=== PATIENT | female | born 1980 | race Caucasian/White ===

== ENCOUNTER 2018-11-17 12:06 | Inpatient (IN) ==
[2018-11-17] MEDS ORDERED: Tdap (Boostrix) Vaccine 0.5 ML SYRINGE IM ONE (12:16)
[2018-11-17] MEDS ORDERED: 0.9 % Sodium Chloride 1,000 ML IVC ONE ×2 (12:16→15:42)
--- NOTE | 2018-11-17 12:22 | Emergency Department Note ---
Disposition Clinical Impression: IVDU (intravenous drug user) Abscess of skin or subcutaneous tissue Qualifiers: Site of cutaneous abscess: extremity Site of cutaneous abscess of extremity: foot Laterality: left Qualified Code(s): L02.612 - Cutaneous abscess of left foot Disposition: Still a Patient Referrals: NONE,PCP [Primary Care Provider] - Forms: ED Satisfaction Letter Time of Disposition: 18:00 Skin/Abscess/FB HPI Stated complaint: Deep ankle wound Time Seen by Provider: 11/17/18 12:14 Source: patient, EMS Mode of arrival: EMS Limitations: no limitations Nursing Notes Reviewed: Yes Vital Signs Reviewed: Yes HPI Narrative: Nontoxic-appearing 37-year-old female with a history of IV drug use (injects Suboxone) presents by EMS for evaluation of a deeply ulcerated abscesses to the left foot and ankle. She states that she last injected into this area approximately one month ago. A couple days after she last injected, she noticed the redness beginning to form. Then the wounds have progressed to significantly erythematous wounds are covered in a brownish colored eschar. Purulent drainage is noted to be present from both these regions. She denies any fever or chills but does complain of nausea and vomiting. Tetanus immunization status is not up-to-date. Also states that she has an abscess to the right antecubital region that has spontaneously opened and drained. This area is covered with an gauze dressing. She arrives with the wound on her left foot open to air. Pt Subjective Complaint: abscess/boil Onset (ago): month(s) Tetanus Up to Date: no Location: RUE, LLE Severity: severe Consistency: Worsening Associated symptoms: Reports: nausea, vomiting. Denies: fever, chills Treatments prior to arrival: none Home Medications Medication Instructions Recorded Confirmed No Known Home Drugs 07/06/15 07/06/15 Allergies Allergy/AdvReac Type Severity Reaction Status Date / Time No Known Allergies Allergy Verified 05/02/17 17:18 All systems ED: reviewed and negative except as stated. Review of Systems: As Per HPI Constitutional: Denies: fever, chills, weakness, weight change Eyes: Denies: eye pain, eye discharge, vision change ENT ED: Denies: ear pain, throat pain, dental pain, hearing loss, epistaxis, congestion, dysphagia Cardiovascular: Denies: chest pain, palpitations, dyspnea on exertion, edema, syncope Respiratory: Denies: cough, dyspnea, wheezes, hemoptysis, stridor Gastrointestinal: Reports: as per HPI, nausea, vomiting. Denies: abdominal pain, diarrhea, constipation, hematemesis, melena, hematochezia Genitourinary: Denies: dysuria, frequency, hematuria, discharge Musculoskeletal: Denies: back pain, neck pain, arthralgia, myalgia Integumentary: Reports: as per HPI, other (Left foot/ankle abscess). Denies: rash, abrasion, lesions Neurological: Denies: headache, weakness, numbness, paresthesias, confusion, abnormal gait, vertigo Psychiatric: Denies: anxiety, depression, suicidal thoughts, homicidal thoughts, auditory hallucinations, visual hallucinations Endocrine: Denies: fatigue Hematological/Lymphatic: Denies: easy bleeding, easy bruising Allergic/Immunologic: Denies: facial swelling, urticaria Past Medical History - Past Medical History Attestation: Yes The following information was validated with the patient. Source: patient, nursing notes reviewed Medical history: Reports: no medical history Psychiatric history: Reports: anxiety, depression MOLDER CLOSED MOLDS history: Reports: no MOLDER CLOSED MOLDS history - Social History Smoking Status: Current every day smoker Smokeless Tobacco Status: No Alcohol use: Reports: none Drug use: Reports: cocaine, IV Drug Use, other Physical Exam - General Limitations: no limitations General appearance: alert, in no apparent distress - Head Head exam: atraumatic, normocephalic, normal inspection - Eye Eye exam: Present: normal appearance, PERRL, EOMI. Absent: nystagmus - ENT ENT exam: mucous membranes moist - Neck Neck exam: Present: normal inspection, full ROM - Chest Chest inspection: Present: normal inspection, symmetric chest wall rise - Expanded Upper Extremity Exam Elbow exam: Present: other (Approximate 1 cm x 0.5 cm ulceration noted to the r ight antecubital region. Mild surround cellulitis. Scant purulent discharge noted.) Forearm/Wrist exam: Present: normal inspection, full ROM Hand exam: Present: normal inspection, full ROM Neuromotor exam: Normal: wrist extension, thumb opposition, fingers 2-5 abduction Neurosensory exam: Normal: radial nerve, ulnar nerve, 2-point discrimination Hand tendon exam: Normal: flexor digitorum profundus (location), extensor tendon (location) Vascular exam: Normal: capillary refill, radial pulse, ulnar pulse - Expanded Lower Extremity Exam Knee exam: Present: normal inspection, full ROM Lower leg exam: Present: normal inspection, full ROM Ankle exam: Present: tenderness, swelling, erythema, other 1 - Extensive cellulitis noted surrounding the ulceration that is partially covered with eschar. Purulent discharge/drainage noted. 2 - Extensive cellulitis noted surrounding an area of eschar that measures approximately 5 cm x 5 cm. Purulent drainage noted to be seeping from underneath the eschar.. Foot/toe exam: Present: tenderness, swelling, erythema, other Neurovascular/Tendon exam: Present: normal capillary refill. Absent: pulse deficit, tendon deficit, extremity cold to touch - Neurological Exam Neurological exam: Present: alert, oriented X3 - Psychiatric Psychiatric exam: Present: normal affect, normal mood - Skin Skin exam: Present: warm, dry, other (As described above) Course Course Narrative: The PICC team was consult due to limited vascular access. PICC line Established at 1500. 1615: I was notified by the patient's nurse that the patient's PICC line will not flush properly. Labs were able to be drawn when the line was initiated however it will not function as of currently, and as such, the patient has not been able to undergo her IV contrast CT of the left lower extremity. FREDA Delarosa from the PICC team has been notified. 1740: CT pending. The patient's wounds will require extensive debridement. We will await CT read and consult with podiatry. Admission versus transfer based off CT imaging and podiatry input. I have discussed this patient's case with Dr. Lozano. Dr. Lozano has had a taqx-qu-vaal evaluation with the patient and agrees with this plan. Vital Signs Temperature 99.3 F 11/17/18 12:13 Pulse Rate 101 11/17/18 12:13 Respiratory Rate 18 11/17/18 12:13 Blood Pressure 125/73 11/17/18 12:13 O2 Sat by Pulse Oximetry 98 11/17/18 12:13 Temperature 99.3 F 11/17/18 12:13 Pulse Rate 101 11/17/18 12:13 Respiratory Rate 18 11/17/18 12:13 Blood Pressure 125/73 11/17/18 12:13 O2 Sat by Pulse Oximetry 98 11/17/18 12:13 Oxygen Delivery Oxygen Delivery Room Air Skin/Abscess/Foreign Body - Medical Records Medical records reviewed: Yes I reviewed the patient's medical records. - Lab Data Lab results reviewed: Yes I reviewed the patient's lab results. Lab results narrative: Lab Results 11/17/18 11/17/18 11/17/18 Range/Units 14:45 14:45 14:45 WBC 17.8 H (4.3-11.1) K/mcL RBC 4.27 (3.82-4.97) M/mcL Hgb 11.4 L (11.5-15.4) g/dL Hct 35.1 L (35.3-44.9) % MCV 82.2 L (83.0-100.0) fL MCH 26.7 L (28.0-33.3) pg MCHC 32.5 (31.6-35.5) g/dL RDW 13.2 (11.5-14.5) % Plt Count 465 H (140-400) K/mcL MPV 9.2 L (9.4-12.4) fL Immature Gran % 0.4 (0-4) % Seg Neutrophils % 75.1 % Lymphocytes % 15.3 % Monocytes % 6.4 % Eosinophils % 2.5 % Basophils % 0.3 % Neutrophils # 13.4 H (1.6-8.9) K/mcL Lymphocytes # 2.7 (0.6-4.6) K/mcL Monocytes # 1.1 (0.0-1.3) K/mcL Eosinophils # 0.4 (0.0-0.6) K/mcL Basophils # 0.1 (0.0-0.2) K/mcL ESR >= 130 H (0-15) mm/hr Sodium 137 (136-145) mEq/L Potassium 3.0 L (3.5-5.1) mEq/L Chloride 103 (98-107) mEq/L Carbon Dioxide 21 L (23-29) mEq/L BUN 24 H (6-20) mg/dL Creatinine 0.89 (0.60-1.20) mg/dL Est GFR ( Amer) > 60 (> 60) Est GFR (Non-Af Amer) > 60 (> 60) BUN/Creatinine Ratio 27 H (6-26) Glucose 89 (70-105) mg/dL Calculated Osmolality 288 (280-300) Lactic Acid (0.5-2.2) mmol/L Calcium 9.4 (8.6-10.3) mg/dL C-Reactive Protein 129 H (Less than 10) mg/L Serum , Qual (Negative) 11/17/18 11/17/18 Range/Units 14:45 14:46 WBC (4.3-11.1) K/mcL RBC (3.82-4.97) M/mcL Hgb (11.5-15.4) g/dL Hct (35.3-44.9) % MCV (83.0-100.0) fL MCH (28.0-33.3) pg MCHC (31.6-35.5) g/dL RDW (11.5-14.5) % Plt Count (140-400) K/mcL MPV (9.4-12.4) fL Immature Gran % (0-4) % Seg Neutrophils % % Lymphocytes % % Monocytes % % Eosinophils % % Basophils % % Neutrophils # (1.6-8.9) K/mcL Lymphocytes # (0.6-4.6) K/mcL Monocytes # (0.0-1.3) K/mcL Eosinophils # (0.0-0.6) K/mcL Basophils # (0.0-0.2) K/mcL ESR (0-15) mm/hr Sodium (136-145) mEq/L Potassium (3.5-5.1) mEq/L Chloride (98-107) mEq/L Carbon Dioxide (23-29) mEq/L BUN (6-20) mg/dL Creatinine (0.60-1.20) mg/dL Est GFR ( Amer) (> 60) Est GFR (Non-Af Amer) (> 60) BUN/Creatinine Ratio (6-26) Glucose (70-105) mg/dL Calculated Osmolality (280-300) Lactic Acid 0.6 (0.5-2.2) mmol/L Calcium (8.6-10.3) mg/dL C-Reactive Protein (Less than 10) mg/L Serum , Qual Negative (Negative) Result diagrams: 11/17/18 14:45 11/17/18 14:45 Lab Results 11/17/18 11/17/18 11/17/18 Range/Units 14:45 14:45 14:45 WBC 17.8 H (4.3-11.1) K/mcL RBC 4.27 (3.82-4.97) M/mcL Hgb 11.4 L (11.5-15.4) g/dL Hct 35.1 L (35.3-44.9) % MCV 82.2 L (83.0-100.0) fL MCH 26.7 L (28.0-33.3) pg MCHC 32.5 (31.6-35.5) g/dL RDW 13.2 (11.5-14.5) % Plt Count 465 H (140-400) K/mcL MPV 9.2 L (9.4-12.4) fL Immature Gran % 0.4 (0-4) % Seg Neutrophils % 75.1 % Lymphocytes % 15.3 % Monocytes % 6.4 % Eosinophils % 2.5 % Basophils % 0.3 % Neutrophils # 13.4 H (1.6-8.9) K/mcL Lymphocytes # 2.7 (0.6-4.6) K/mcL Monocytes # 1.1 (0.0-1.3) K/mcL Eosinophils # 0.4 (0.0-0.6) K/mcL Basophils # 0.1 (0.0-0.2) K/mcL ESR >= 130 H (0-15) mm/hr Sodium 137 (136-145) mEq/L Potassium 3.0 L (3.5-5.1) mEq/L Chloride 103 (98-107) mEq/L Carbon Dioxide 21 L (23-29) mEq/L BUN 24 H (6-20) mg/dL Creatinine 0.89 (0.60-1.20) mg/dL Est GFR ( Amer) > 60 (> 60) Est GFR (Non-Af Amer) > 60 (> 60) BUN/Creatinine Ratio 27 H (6-26) Glucose 89 (70-105) mg/dL Calculated Osmolality 288 (280-300) Lactic Acid (0.5-2.2) mmol/L Calcium 9.4 (8.6-10.3) mg/dL C-Reactive Protein 129 H (Less than 10) mg/L Serum , Qual (Negative) 11/17/18 11/17/18 Range/Units 14:45 14:46 WBC (4.3-11.1) K/mcL RBC (3.82-4.97) M/mcL Hgb (11.5-15.4) g/dL Hct (35.3-44.9) % MCV (83.0-100.0) fL MCH (28.0-33.3) pg MCHC (31.6-35.5) g/dL RDW (11.5-14.5) % Plt Count (140-400) K/mcL MPV (9.4-12.4) fL Immature Gran % (0-4) % Seg Neutrophils % % Lymphocytes % % Monocytes % % Eosinophils % % Basophils % % Neutrophils # (1.6-8.9) K/mcL Lymphocytes # (0.6-4.6) K/mcL Monocytes # (0.0-1.3) K/mcL Eosinophils # (0.0-0.6) K/mcL Basophils # (0.0-0.2) K/mcL ESR (0-15) mm/hr Sodium (136-145) mEq/L Potassium (3.5-5.1) mEq/L Chloride (98-107) mEq/L Carbon Dioxide (23-29) mEq/L BUN (6-20) mg/dL Creatinine (0.60-1.20) mg/dL Est GFR ( Amer) (> 60) Est GFR (Non-Af Amer) (> 60) BUN/Creatinine Ratio (6-26) Glucose (70-105) mg/dL Calculated Osmolality (280-300) Lactic Acid 0.6 (0.5-2.2) mmol/L Calcium (8.6-10.3) mg/dL C-Reactive Protein (Less than 10) mg/L Serum , Qual Negative (Negative) - Radiology Data Radiology results reviewed: Yes I reviewed the patient's radiology results. S.B.AStella - S.B.A.REvelyn Situation: Demographics, MOA Background: Presenting Complaint, Relevant PMH, Meds, & Allergies Assessment: Vital Signs, Course and respsone to treatment, Exam Concerns, Patient/Family Expectation, Pertinant Lab Results, Outstanding Labs Recommendation: Barrier(s) to disposition, Recommendation based on pending studies, treatments, or consults S.B.A.R. Report Given to: PALOMA Page S.B.A.R. Repor Time: 18:00 (care transferred to Jakub Wilson CNP due to midlevel shift change. )
[2018-11-17] MEDS ORDERED: Isovue-370 500 ML BOTTLE IVP ONE (12:40)
--- NOTE | 2018-11-17 12:44 | Emergency Department Note ---
Disposition Clinical Impression: IVDU (intravenous drug user) Abscess of skin or subcutaneous tissue Qualifiers: Site of cutaneous abscess: extremity Site of cutaneous abscess of extremity: foot Laterality: left Qualified Code(s): L02.612 - Cutaneous abscess of left foot Disposition: Still a Patient General Adult HPI - General Chief complaint: ED Skin/Abscess/Foreign Body Stated complaint: Deep ankle wound Time Seen by Provider: 11/17/18 12:14 Source: patient, EMS Mode of arrival: EMS Limitations: no limitations Nursing Notes Reviewed: Yes Vital Signs Reviewed: Yes - History of Present Illness HPI Narrative: Attestation note: Patient was seen with the emergency medicine resident/nurse pr actitioner/physician ex assistant/program director/transitional resident/medical student: PALOMA ROBIN I have personally performed a face to face evaluation on this patient. I have reviewed and agree with history and physical examination patient management and disposition. Briefly the salient points of the case are as follows: 37-year-old female history of extensive IV drug use has been having increasing the spreading ulcerative process on the dorsum of her foot and her lateral malleolus for about a month to 6 weeks. No crepitance felt no signs of acute tissue necrosis but there is heat margins with serosanguineous discharge and pain. Did not films read by radiology as negative osteomyelitis or gas in tissues. Patient is getting a PICC line placed will be getting IV antibiotics thank and Dawna montiel labs patient's tetanus will be boosted patient's symptoms of pain will be treated. Patient will get a CT scan of the left ankle with contrast. We are primary concerned about osteomyelitis and work necrotizing fasciitis. Disposition pending. Providing 45 minutes of critical care service for this patient. Pain Scale: 10 - Related Data Home Medications Medication Instructions Recorded Confirmed No Known Home Drugs 07/06/15 07/06/15 Allergies Allergy/AdvReac Type Severity Reaction Status Date / Time No Known Allergies Allergy Verified 05/02/17 17:18 Constitutional: Denies: fever, chills, weakness, weight change Eyes: Denies: eye pain, eye discharge, vision change ENT ED: Denies: ear pain, throat pain, dental pain, hearing loss, epistaxis, congestion, dysphagia Cardiovascular: Denies: chest pain, palpitations, dyspnea on exertion, edema, syncope Respiratory: Denies: cough, dyspnea, wheezes, hemoptysis, stridor Gastrointestinal: Reports: as per HPI, nausea, vomiting. Denies: abdominal pain, diarrhea, constipation, hematemesis, melena, hematochezia Genitourinary: Denies: dysuria, frequency, hematuria, discharge Musculoskeletal: Denies: back pain, neck pain, arthralgia, myalgia Integumentary: Reports: as per HPI, other (Left foot/ankle abscess). Denies: rash, abrasion, lesions Neurological: Denies: headache, weakness, numbness, paresthesias, confusion, abnormal gait, vertigo Psychiatric: Denies: anxiety, depression, suicidal thoughts, homicidal thoughts, auditory hallucinations, visual hallucinations Endocrine: Denies: fatigue Hematological/Lymphatic: Denies: easy bleeding, easy bruising Allergic/Immunologic: Denies: facial swelling, urticaria Past Medical History - Past Medical History Medical history: Reports: no medical history Psychiatric history: Reports: anxiety, depression WATER RESOURCE SPECIALIST history: Reports: no WATER RESOURCE SPECIALIST history - Social History Smoking Status: Current every day smoker Smokeless Tobacco Status: No Alcohol use: Reports: none Drug use: Reports: cocaine, IV Drug Use, other Physical Exam - General Limitations: no limitations General appearance: alert, in no apparent distress Course Vital Signs Temperature 99.3 F 11/17/18 12:13 Pulse Rate 101 11/17/18 12:13 Respiratory Rate 18 11/17/18 12:13 Blood Pressure 125/73 11/17/18 12:13 O2 Sat by Pulse Oximetry 98 11/17/18 12:13 Temperature 99.3 F 11/17/18 12:13 Pulse Rate 101 11/17/18 12:13 Respiratory Rate 18 11/17/18 12:13 Blood Pressure 125/73 11/17/18 12:13 O2 Sat by Pulse Oximetry 98 11/17/18 12:13 Oxygen Delivery Oxygen Delivery Room Air
[2018-11-17 15:18] LABS: Basophils # 0.1 K/mcL (0.0-0.2); Basophils % 0.3 %; Eosinophils # 0.4 K/mcL (0.0-0.6); Eosinophils % 2.5 %; Hematocrit 35.1 % (35.3-44.9); Hemoglobin 11.4 g/dL (11.5-15.4); Immature Granulocytes % 0.4 % (0-4); Lymphocytes # 2.7 K/mcL (0.6-4.6); Lymphocytes % 15.3 %; Mean Corpuscular HGB Conc 32.5 g/dL (31.6-35.5); Mean Corpuscular Hemoglobin 26.7 pg (28.0-33.3); Mean Corpuscular Volume 82.2 fL (83.0-100.0); Mean Platelet Volume 9.2 fL (9.4-12.4); Monocytes # 1.1 K/mcL (0.0-1.3); Monocytes % 6.4 %; Neutrophils # 13.4 K/mcL (1.6-8.9); Platelet Count 465 K/mcL (140-400); Red Blood Count 4.27 M/mcL (3.82-4.97); Red Cell Distribution Width 13.2 % (11.5-14.5); Segmented Neutrophils % 75.1 %
[2018-11-17] MEDS ORDERED: *HR* HYDROmorphone (PF) 1 MG/ML SYRINGE IVP ONE (15:24)
[2018-11-17] MEDS: Piperacillin/Tazobactam 3.375 GM in 0.9 % Sodium Chloride Mini Bag 100 ML IVPB ONE ×2 (15:31→17:24)
[2018-11-17 15:37] LABS: BUN/Creatinine Ratio 27 (6-26); Blood Urea Nitrogen 24 mg/dL (6-20); C-Reactive Protein 129 mg/L (Less than 10); Calcium 9.4 mg/dL (8.6-10.3); Carbon Dioxide 21 mEq/L (23-29); Chloride 103 mEq/L (98-107); Glucose 89 mg/dL (70-105); Osmolality,Calculated 288 (280-300); Sodium 137 mEq/L (136-145); eGFR For Non-African Americans > 60 (> 60)
[2018-11-17] MEDS ORDERED: Potassium Effervescent 25 MEQ TABLET.EFF PO ONE (15:42)
--- NOTE | 2018-11-17 18:19 | Emergency Department Note ---
Disposition Clinical Impression: IVDU (intravenous drug user) Abscess of skin or subcutaneous tissue Qualifiers: Site of cutaneous abscess: extremity Site of cutaneous abscess of extremity: foot Laterality: left Qualified Code(s): L02.612 - Cutaneous abscess of left foot Disposition: Admitted As Inpatient Condition: Good Referrals: NONE,PCP [Primary Care Provider] - Forms: ED Satisfaction Letter General Adult HPI - General Chief complaint: ED Skin/Abscess/Foreign Body Stated complaint: Deep ankle wound Time Seen by Provider: 11/17/18 12:14 Source: patient, EMS Mode of arrival: private vehicle Limitations: no limitations Nursing Notes Reviewed: Yes Vital Signs Reviewed: Yes - History of Present Illness Pain Scale: 10 - Related Data Home Medications Medication Instructions Recorded Confirmed No Known Home Drugs 07/06/15 07/06/15 Allergies Allergy/AdvReac Type Severity Reaction Status Date / Time No Known Allergies Allergy Verified 11/17/18 19:02 Constitutional: Denies: fever, chills, weakness, weight change Eyes: Denies: eye pain, eye discharge, vision change ENT ED: Denies: ear pain, throat pain, dental pain, hearing loss, epistaxis, congestion, dysphagia Cardiovascular: Denies: chest pain, palpitations, dyspnea on exertion, edema, syncope Respiratory: Denies: cough, dyspnea, wheezes, hemoptysis, stridor Gastrointestinal: Reports: as per HPI, nausea, vomiting. Denies: abdominal pain, diarrhea, constipation, hematemesis, melena, hematochezia Genitourinary: Denies: dysuria, frequency, hematuria, discharge Musculoskeletal: Denies: back pain, neck pain, arthralgia, myalgia Integumentary: Reports: as per HPI, other (Left foot/ankle abscess). Denies: rash, abrasion, lesions Neurological: Denies: headache, weakness, numbness, paresthesias, confusion, abnormal gait, vertigo Psychiatric: Denies: anxiety, depression, suicidal thoughts, homicidal thoughts, auditory hallucinations, visual hallucinations Endocrine: Denies: fatigue Hematological/Lymphatic: Denies: easy bleeding, easy bruising Allergic/Immunologic: Denies: facial swelling, urticaria Past Medical History - Past Medical History Medical history: Reports: no medical history Psychiatric history: Reports: anxiety, depression RESTAURANT DISTRICT MANAGER history: Reports: no RESTAURANT DISTRICT MANAGER history - Social History Smoking Status: Current every day smoker Smokeless Tobacco Status: No Alcohol use: Reports: none Drug use: Reports: cocaine, IV Drug Use, other Physical Exam - General Limitations: no limitations General appearance: alert, in no apparent distress Course Course Narrative: Case was assumed from previous [facility], please see their documentation for treatments and interventions completed prior to my arrival. Briefly this is a 37-year-old female who is an IV drug user injecting Suboxone. She has multiple abscesses worse noted to the left medial aspect of the ankle and the dorsal surface of the foot. These are draining copious amounts of purulent drainage, erythemic, deeply ulcerated and edematous. Patient states these have been here for months. At home patient has denied fevers, here she was slightly febrile temperature 99.3. Labs completed revealed an elevated white blood cell count 17.8 with a shift, ESR greater than 1:30, CRP 129, metabolic panel significant for a potassium of 3.0 that had been replaced prior to my arrival. X-ray without evidence of gas or also, CT of the lower extremity is pending. Vancomycin had been initiated, wound cultures and blood cultures obtained. When seen patient who does appear uncomfortable, she states her foot is signifi cantly painful. Area is edematous, copious amounts of purulent drainage, dried crusting eschar drainage where patient was not cleaning the wound. It is erythemic. She does have capillary refill to her toes, she has full range of motion to her foot and ankle. CT reveals no gas or osteomyelitis over there is a 14 x 10.6 x 6.3 cm abscess. I did call and speak with caustic operator Dr. Branham who states we are able to manage this patient in house, admitted to hospitalist services and they will consult on her. I did update the patient's plan of care who is agreeable. We will initiate pain management and page for the hospitalists at this time. - Reevaluation(s) Reevaluation #1: Spoke with hospitalist Dr. Mena, agreeable to accept patient on an inpati ent status with consult to podiatry. Patient continues to be agreeable to plan of care. We will monitor the patient's as she was transitioned to the hospitalist team. Time: 20:05 Vital Signs Temperature 99.3 F 11/17/18 12:13 Pulse Rate 101 11/17/18 12:13 Respiratory Rate 18 11/17/18 12:13 Blood Pressure 125/73 11/17/18 12:13 O2 Sat by Pulse Oximetry 98 11/17/18 12:13 Temperature 99.3 F 11/17/18 12:13 Pulse Rate 80 11/17/18 19:38 Respiratory Rate 16 11/17/18 19:38 Blood Pressure 105/89 11/17/18 19:38 O2 Sat by Pulse Oximetry 99 11/17/18 19:38 Oxygen Delivery Oxygen Delivery Room Air Medical Decision Making - Lab Data Result diagrams: 11/17/18 14:45 11/17/18 14:45 Lab Results 11/17/18 11/17/18 11/17/18 Range/Units 14:45 14:45 14:45 WBC 17.8 H (4.3-11.1) K/mcL RBC 4.27 (3.82-4.97) M/mcL Hgb 11.4 L (11.5-15.4) g/dL Hct 35.1 L (35.3-44.9) % MCV 82.2 L (83.0-100.0) fL MCH 26.7 L (28.0-33.3) pg MCHC 32.5 (31.6-35.5) g/dL RDW 13.2 (11.5-14.5) % Plt Count 465 H (140-400) K/mcL MPV 9.2 L (9.4-12.4) fL Immature Gran % 0.4 (0-4) % Seg Neutrophils % 75.1 % Lymphocytes % 15.3 % Monocytes % 6.4 % Eosinophils % 2.5 % Basophils % 0.3 % Neutrophils # 13.4 H (1.6-8.9) K/mcL Lymphocytes # 2.7 (0.6-4.6) K/mcL Monocytes # 1.1 (0.0-1.3) K/mcL Eosinophils # 0.4 (0.0-0.6) K/mcL Basophils # 0.1 (0.0-0.2) K/mcL ESR >= 130 H (0-15) mm/hr Sodium 137 (136-145) mEq/L Potassium 3.0 L (3.5-5.1) mEq/L Chloride 103 (98-107) mEq/L Carbon Dioxide 21 L (23-29) mEq/L BUN 24 H (6-20) mg/dL Creatinine 0.89 (0.60-1.20) mg/dL Est GFR ( Amer) > 60 (> 60) Est GFR (Non-Af Amer) > 60 (> 60) BUN/Creatinine Ratio 27 H (6-26) Glucose 89 (70-105) mg/dL Calculated Osmolality 288 (280-300) Lactic Acid (0.5-2.2) mmol/L Calcium 9.4 (8.6-10.3) mg/dL C-Reactive Protein 129 H (Less than 10) mg/L Serum , Qual (Negative) 11/17/18 11/17/18 Range/Units 14:45 14:46 WBC (4.3-11.1) K/mcL RBC (3.82-4.97) M/mcL Hgb (11.5-15.4) g/dL Hct (35.3-44.9) % MCV (83.0-100.0) fL MCH (28.0-33.3) pg MCHC (31.6-35.5) g/dL RDW (11.5-14.5) % Plt Count (140-400) K/mcL MPV (9.4-12.4) fL Immature Gran % (0-4) % Seg Neutrophils % % Lymphocytes % % Monocytes % % Eosinophils % % Basophils % % Neutrophils # (1.6-8.9) K/mcL Lymphocytes # (0.6-4.6) K/mcL Monocytes # (0.0-1.3) K/mcL Eosinophils # (0.0-0.6) K/mcL Basophils # (0.0-0.2) K/mcL ESR (0-15) mm/hr Sodium (136-145) mEq/L Potassium (3.5-5.1) mEq/L Chloride (98-107) mEq/L Carbon Dioxide (23-29) mEq/L BUN (6-20) mg/dL Creatinine (0.60-1.20) mg/dL Est GFR ( Amer) (> 60) Est GFR (Non-Af Amer) (> 60) BUN/Creatinine Ratio (6-26) Glucose (70-105) mg/dL Calculated Osmolality (280-300) Lactic Acid 0.6 (0.5-2.2) mmol/L Calcium (8.6-10.3) mg/dL C-Reactive Protein (Less than 10) mg/L Serum , Qual Negative (Negative)
[2018-11-17] MEDS ORDERED: *HR* Morphine Immed Rel 30 MG TABLET PO ONE (18:20)
[2018-11-17] MEDS ORDERED: Ondansetron 4 MG/2 ML VIAL IVP ONE (18:24)
--- NOTE | 2018-11-17 21:16 | Anesthesia Evaluation PreOp ---
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 History: Other (Anxiety/Depression) Other Medical History: Denies Any Significant HX Anesthesia History: No Prior Anesthetic Complications, Past Anesthesia (Multiple surgeries for incision and drainage) : No Test: Negative (11/17/18) Alcohol Use: none Drug use: cocaine, IV Drug Use, other (On suboxone) Medications and Allergies RX: No Known Home Drugs 07/06/15 [History] Allergy/AdvReac Type Severity Reaction Status Date / Time No Known Allergies Allergy Verified 11/17/18 19:02 - Meds/Allergy Pre-op Review Medications Reviewed: Yes Allergies Reviewed: Yes Beta Blockers on Current Med List: No Anesthesia Results - Labs 11/17/18 14:45 11/17/18 14:45 Anesthesia Exam Vital Signs/O2 Sat, Most Current Temp Pulse Resp BP Pulse Ox 98.1 F 68 15 109/71 98 11/17/18 21:50 11/17/18 21:50 11/17/18 21:50 11/17/18 21:50 11/17/18 21:50 NPO (# of Hours): > 8 hrs Pain Scale: 0 Pain Scale Used: Numeric (1 - 10) - HEENT Pupil (Motor): Pupils equal, EOMI Mallampati: I Teeth: Normal Oral Opening: Greater than 3 - 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
--- NOTE | 2018-11-17 21:49 | Podiatry Consult Note ---
Date of Encounter: 11/17/18 Time of Encounter: 08:30 Assessment and Plan (1) Abscess of tendon sheath, left ankle and foot Current visit: Yes Status: Acute 37-year-old female with history of IV junk abuse with worsening ulcerations and infections of the left foot and ankle multiple areas showing CT scan with significant abscess. Concern for necrotizing infection. I had a thorough review with the patient regarding her condition, my findings, and recommendations for treatment. We discussed the infection present in the left foot and ankle. We discussed that her left lower extremity may not be salvageable and she could require an amputation of the leg. Discussed she is going to require multiple procedures and trips to the operating room to try to salvage her limb if that is possible. No guarantees were made as to the outcome. She is being brought emergently to the operating room for incision and drainage of the left foot and ankle abscess and removal of nonviable tissue as the patient has systemic signs of infection in addition to her local says infection present in the left foot ankle/leg and multiple areas. Nature the procedure, risks versus benefits potential complications consequences of surgery and her condition discussed at length including but not limited to infection bleeding swelling numbness tingling nerve damage kidney damage liver damage loss of leg heart attack blood clot pulmonary embolism and etc. It was clearly explained to her that she is at risk for losing her leg and this will be a staged procedure and she will have wounds to heal. I did encourage smoking cessation. Patient is now NPO. All of her questions have been answered and the informed consent was signed. History of Present Illness HPI: Ms. Rowell is a 37 year old female with a history of IV drug abuse who reports she has had wounds on her foot for a month and they have been gradually getting w orse. She says she does not know how the wounds started on her foot. She says she has had other infections in the past and points to areas on her arms and her neck and says that they also required surgery which she had done in [place]. Patient denies when asked that she has been using IV drugs. She says she is on Suboxone. She says she started to experience fever and has felt nauseous and ou t of it so she came to the emergency room for evaluation. She says her left foot and ankle have been hurting more and she asked me not to touch it. She says she has seen a lot of purulent drainage coming out of the wounds. Consult by ER for concern of abscess and necrotizing infection of the left foot and ankle. Past Med Surg Social Fam HX - Past Medical History Medical history: no medical history Psychiatric history: anxiety, depression - Past Surgical History Surgical History: other (Multiple surgeries for incision and drainage) Additional surgical history: abcess removed right neck - Social History Smoking Status: Current every day smoker Smokeless Tobacco Status: No Alcohol use: none Drug use: cocaine, IV Drug Use, other Medications and Allergies No Known Home Drugs 07/06/15 [History] Allergy/AdvReac Type Severity Reaction Status Date / Time No Known Allergies Allergy Verified 11/17/18 19:02 All Systems Reviewed: The remainder of the systems were reviewed and are negative - Constitutional Constitutional: no fever(s) - Cardiovascular Cardiovascular: no chest pain, no dyspnea - Respiratory Respiratory: no cough - Musculoskeletal Musculoskeletal: numbness (Left foot) Physical Exam - Constitutional Vitals: Temp Pulse Resp BP Pulse Ox 99.3 F 76 18 110/58 97 11/17/18 12:13 11/17/18 21:06 11/17/18 21:42 11/17/18 21:42 11/17/18 21:06 General appearance: average body habitus - Head Head exam: Present: atraumatic - Eye Eye exam: Present: EOMI - Respiratory Additional comments: Nonlabored respirations - Cardiovascular Cardiovascular exam: Present: +S1, +S2. Absent: JVD - GI/Abdominal GI/Abdominal exam: Present: soft. Absent: tenderness - Ankle & Foot Exam: Well-developed and nourished female in no acute distress Capillary refill time intact to digits of the left foot. There is fluctuance present on the dorsum of the foot and the patient will not allow me to further examine her. There is evidence of purulent drainage and while I was examining her I was able to express some purulent drainage which appeared to be tracking proximally in the anterior ankle. She would not allow further exam due to pain and she was guarding. The foot was warm to touch. There was moderate edema of the midfoot. Erythema of the midfoot was also present. Was evidence of scab and necrotic tissue medial ankle and foot as well as dorsum of foot and ankle extending laterally. Sensation intact to touch. CT scan shows large abscess of the left foot and the ankle. Results - Labs Result Diagrams: 11/17/18 14:45 11/17/18 14:45 Labs: Abnormal lab results WBC 17.8 K/mcL (4.3-11.1) H 11/17/18 14:45 Hgb 11.4 g/dL (11.5-15.4) L 11/17/18 14:45 Hct 35.1 % (35.3-44.9) L 11/17/18 14:45 MCV 82.2 fL (83.0-100.0) L 11/17/18 14:45 MCH 26.7 pg (28.0-33.3) L 11/17/18 14:45 Plt Count 465 K/mcL (140-400) H 11/17/18 14:45 MPV 9.2 fL (9.4-12.4) L 11/17/18 14:45 Neutrophils # 13.4 K/mcL (1.6-8.9) H 11/17/18 14:45 ESR >= 130 mm/hr (0-15) H 11/17/18 14:45 Potassium 3.0 mEq/L (3.5-5.1) L 11/17/18 14:45 Carbon Dioxide 21 mEq/L (23-29) L 11/17/18 14:45 BUN 24 mg/dL (6-20) H 11/17/18 14:45 BUN/Creatinine Ratio 27 (6-26) H 11/17/18 14:45 C-Reactive Protein 129 mg/L (Less than 10) H 11/17/18 14:45 H & H 11/17/18 Range/Units 14:45 Hgb 11.4 L (11.5-15.4) g/dL Hct 35.1 L (35.3-44.9) % All other labs normal. Consult Discharge Plan - Plan Referrals: NONE,PCP [Primary Care Provider] -
[2018-11-17] MEDS ORDERED: Albuterol 2.5 MG/3 ML NEBULIZER IH ONE ×2 (22:21→22:40)
[2018-11-17] MEDS ORDERED: Dexamethasone 4 MG/ML VIAL IVP ONE (22:21)
[2018-11-17] MEDS ORDERED: *HR* Labetalol 20 MG/4 ML SYRINGE IVP PRN (22:21)
[2018-11-17] MEDS ORDERED: *HR* OxyCODONE Immed Rel 5 MG TABLET PO PRN (22:21)
[2018-11-17] MEDS ORDERED: Ringers Solution, Lactated 1,000 ML ONE (22:31)
[2018-11-17] MEDS ORDERED: Ringers Solution, Lactated 1,000 ML IVC SCH (22:45)
[2018-11-17] MEDS ORDERED: Vancomycin 1,000 MG VIAL ONE (23:06)
[2018-11-17] MEDS ORDERED: Bupivacaine-MPF 0.25% 10 ML VIAL ONE (23:07)
[2018-11-17] MEDS ORDERED: *HR* FentaNYL (PF) 100 MCG/2 ML VIAL ONE (23:16)
[2018-11-17] MEDS ORDERED: *HR* Propofol 200 MG/20 ML VIAL IVP ONE (23:17)
[2018-11-17] MEDS ORDERED: *HR* Succinylcholine 200 MG/10 ML VIAL IVP ONE (23:19)
[2018-11-17] MEDS ORDERED: Ondansetron 4 MG/2 ML VIAL ONE (23:19)
[2018-11-17] MEDS ORDERED: Lidocaine -MPF 2% 2 ML VIAL ONE (23:19)
[2018-11-17] MEDS ORDERED: Dexamethasone 4 MG/ML VIAL ONE (23:19)
[2018-11-17] MEDS ORDERED: Bupivacaine/EPI 1:200k 0.25%PF 30 ML VIAL ONE (23:23)
[2018-11-17] MEDS ORDERED: *HR* Rocuronium Bromide 50 MG/5 ML VIAL ONE (23:23)
[2018-11-18] MEDS: *HR* HYDROmorphone (PF) 1 MG/ML SYRINGE IVP PRN ×2 (00:46→00:54)
--- NOTE | 2018-11-18 00:47 | Operative Note ---
Date of procedure: 11/18/18 Pre-op diagnosis: left foot/ankle abscess Post-op diagnosis: same Procedure: incision and drainage left foot extensive multiple areas incision and drainage left ankle/leg Implants: none Complications: none Anesthesia: LORRIE Surgeon: Arpit Branham Was there an visitor services information assistant present: No Estimated blood loss (cc): 40 Tourniquet Time (Minutes): 18 Specimen: left foot/ankle abscess culture swabs and tissue-aerob, anaero, afb, fungal Condition: stable Disposition: PACU Procedure in Detail: 37-year-old female with a history of IV drug abuse admitted with sepsis and worsening left foot/ankle ulceration dorsal foot and anterior ankle as well as medial foot/ankle. The ulcerations contain purulen drainage and dorsally meausre 8cmx4.5x0.4cm and medially [id number]. CT scan of her left lower extremity showed significant extensive abscess. The patient had the nature of the above procedure, risks versus benefits potential complications and consequences of her condition and surgery discussed at length. It was made clear to the patient that she could , lose her leg or part of her foot due to the infection, lose functionality, developed a drop foot or weakness and require more surgery due to his infection and condition. No guarantees were made that her limb would be salvageable and it was explained to the patient that she will require multiple surgeries of her limb if it is able to be salvaged. Did discuss and informed patient that more likely than she will ultimately require an amputation of the leg due to her infection. She says he wants to try to save it. All of her questions have been answered and the informed consent was signed. Patient was taken from the ER into the operating room placed on the operating room table in the supine position. A thigh tourniquet was applied and inflated to 250 mmHg. 0.25% marcaine with epi was injected into the patient's left lower extremity. The following procedure then began. Left foot complex multifocal incision and drainage. Attention was directed to the dorsal laspect of the patient's left foot where the wound with purulent drainage was located. A #15 blade was used to make an incision distally on the foot over the extensor tendons. Purulent drainage was tracking distally in the subcutaneou tissue and was extensive. All areas were probed and explored. There was significant devitalized tissue present and the misonex debridement wand was utilized to debride the soft tissue. The extensory and TA tendon were identified in the wound but not noted to have purulent drainage tracking along them. Culture swabs were used to obtain culture of the purulent drainage and tissue was sent to microbiology. Copious amounts of purulent drainage was expressed from the forefoot. The lateral foot was also probed and explored and purulent drainage was noted to be tracking over the dorsolateral foot over the level of the cuboid and midtarsal joints. The medial hindfoot wound extending onto the ankle was debrided with misonex debridement wand. Purulent drainage was noted to be tracking proximally in the subctuneous tissue. no purulent expressed distally medialy in the foot. The infection was extensive and in the deep tissue as well as subcutaneous tissue. The site was irrigated with a 3L bag of normal sterile saline which contained 3g of vancomycin. Upon reinspection no further purulence could be expressed from the distal forefoot. Attention was then directed proximally and medially. Left ankle extensive incision and drainage. With attention directed proximally more purulent drainage was able to be expressed along the anterior ankle so the incision was lengthened across the ankle. Purulent drainage was also noted at the medial ankle and the incision was made more proximal expressing purulent drainage. Purulence was not noted to be along the tibialis posterior tendon or tracking along the anterior ankle tendons. There was devitalized nonviable tissue in the anterior aspect of the ankle as well as the medial ankle which was excised. The bridge between the 2 wounds had purulent drainage tracking between them and the devitalized tissue underneath necessitated excision and then the 2 wounds upon excision of the soft tissue connected. The approximate measurements were 16.2 cm x 5.5 cm x 0.5 cm. The sites were irrigated with 3 L of normal sterile saline which contained 3 g of vancomycin. Upon reinspection no further purulent drainage could be expressed from any site aThe tourniquet was deflated after 18 minutes and Bovie was used to cauterize any bleeders. Hemoblast applied in the wound. The wound was covered with adaptic. Retention sutures were placed. Postoperative bandaging included 4 x 4 gauze ABDs Kerlix and Ba wrap. The patient had intact capillary refill time to the left foot digits. Foot was warm to touch. There was adequate hemostasis at the conclusion of the procedure. Patient escorted to the PACU. She will be admitted to the floor where she will continue IV antibiotics.
[2018-11-18] MEDS: *HR* Promethazine 25 MG/ML VIAL IVP PRN ×3 (01:01→05:42)
--- NOTE | 2018-11-18 01:21 | Anesthesia Evaluation Post Op ---
Date of Encounter: 11/18/18 Time of Encounter: 01:20 - Vital Signs Vital Signs: Vital Signs/O2 Sat, Most Current Temp Pulse Resp BP Pulse Ox 97.8 F 98 12 125/68 96 11/18/18 01:11 11/18/18 01:11 11/18/18 01:11 11/18/18 01:11 11/18/18 01:11 - Lungs Lungs: Clear Ascult./Percussion - Cardiovascular Regular Rate - Mental Status Mental Status: Alert & Oriented, Answers Appropriately - Pain Pain Scale: 3 Pain Scale used: Numeric (1 - 10) - Nausea Vomiting Nausea Vomiting: Not Present - Hydration Hydration: Tolerates oral liquids, Has not voided - Discharge PostOp Status: Transfer Patient to floor
[2018-11-18] MEDS ORDERED: Naloxone 0.4 MG/ML INJ IVP PRN (02:55)
[2018-11-18] MEDS: 0.9 % Sodium Chloride w KCl 20 MEQ/1,000 ML MLS IVC SCH ×2 (03:30→15:10)
[2018-11-18 03:51] LABS: Basophils % 0.3 %; Eosinophils # 0.2 K/mcL (0.0-0.6); Eosinophils % 1.7 %; Hematocrit 28.8 % (35.3-44.9); Immature Granulocytes % 0.4 % (0-4); Lymphocytes # 2.2 K/mcL (0.6-4.6); Lymphocytes % 19.6 %; Mean Corpuscular HGB Conc 31.6 g/dL (31.6-35.5); Mean Corpuscular Hemoglobin 26.5 pg (28.0-33.3); Mean Corpuscular Volume 83.7 fL (83.0-100.0); Monocytes # 0.7 K/mcL (0.0-1.3); Monocytes % 6.3 %; Platelet Count 360 K/mcL (140-400); Red Blood Count 3.44 M/mcL (3.82-4.97); Red Cell Distribution Width 13.4 % (11.5-14.5); Segmented Neutrophils % 71.7 %
[2018-11-18 03:53] LABS: Hemoglobin 9.1 g/dL (11.5-15.4)
[2018-11-18 04:13] LABS: Blood Urea Nitrogen 15 mg/dL (6-20); Carbon Dioxide 22 mEq/L (23-29); Chloride 110 mEq/L (98-107); Potassium 3.2 mEq/L (3.5-5.1); Sodium 139 mEq/L (136-145)
[2018-11-18 04:14] LABS: Alanine Aminotransferase 9 Units/L (7-52); Albumin 2.9 g/dL (3.5-5.7); Albumin/Globulin Ratio 0.8 (1.1-2.2); Alkaline Phosphatase 92 Units/L (34-104); Aspartate Amino Transferase 11 Units/L (13-39); BUN/Creatinine Ratio 21 (6-26); Bilirubin,Total 0.3 mg/dL (0.3-1.0); Calcium 8.7 mg/dL (8.6-10.3); Globulin 3.6 g/dL (2.4-3.5); Glucose 82 mg/dL (70-105); Osmolality,Calculated 288 (280-300); Total Protein 6.5 g/dL (6.4-8.9); eGFR For Non-African Americans > 60 (> 60)
--- NOTE | 2018-11-18 04:32 | Internal Med History&Physical ---
Date of Encounter: 11/18/18 Time of Encounter: 01:30 Internal Medicine - H&P: HPI Chief complaint: foot infection/pain Admitted From: Emergency Dept Plans for Post Hospital Care: Home History of present illness: Ms. Rowell is a 37 year old female who presents to the ER tonight complaining of severe, excruciating pain in her left foot. She was found to have a significant ulceration with necrosis secondary to chronic injection of Suboxone into her soft tissues. Podiatry was consulted and patient was taken to the OR this evening by Dr. Branham for debridement and staged surgical procedures. She was admitted to hospitalist service with consultation to podiatry. Patient was taken to surgery shortly after I received a phone call from the ER. I therefore did not see her until after surgery and recovering in PACU. Patient states she has had multiple abscesses throughout her skin and soft tissues over the years. She is a chronic abuser of Suboxone, which she buys on the street. She will usually crush it up and inject it into any vein she could find. She has had prior abscesses in her neck and her left hand requiring significant surgical debridement and intervention. She has multiple soft tissue scabs and ulcerations throughout her torso and extremities at the present time. Her left foot was the most excruciatingly painful ulcer/abscess she has thus far. She admits to having had some fevers and chills but no night sweats. She denies any cough, shortness of breath, or chest pain. Despite her significant IV drug abuse and extensive soft tissue abscesses and infections in the past, she denies any history of endocarditis. She has required long-term IV antibiotics with a PICC line in a correction in the past. She will likely require the same treatment this time around as well. Past Med Surg Social Fam HX - Past Medical History Attestation: Yes The following information was validated with the patient. Source: patient, obtained from family Medical history: other (IVDA) Additional medical history: IV drug use Psychiatric history: anxiety, depression - Past Surgical History Surgical History: other (soft tissue neck and hand surgery for abscesses) Additional surgical history: abcess removed right neck and left hand - Social History Smoking Status: Current every day smoker Packs per day: 1 Smokeless Tobacco Status: No Alcohol use: none Drug use: cocaine, IV Drug Use, other (suboxone -- not prescribed) Current living situation: Home Activity Level: Independent ambulation Recent Out of Country Travel Within the Last 8 Weeks: No - Family History Mother History Unknown: Yes Father History Unknown: Yes Internal Medicine - H&P: Meds No Known Home Drugs 07/06/15 [History] Allergy/AdvReac Type Severity Reaction Status Date / Time No Known Allergies Allergy Verified 11/17/18 19:02 - Constitutional Constitutional: chills, fever(s), no night sweats - EENT Eyes: no blurry vision, no change in vision Ears: no ear pain, no tinnitus Nose, mouth and throat: no sore throat - Cardiovascular Cardiovascular ROS IM: no chest pain, no dyspnea, no dyspnea on exertion - Respiratory Respiratory: no cough, no hemoptysis, no chest congestion, no excessive phlegm production, no change in phlegm color, no pain with cough - Gastrointestinal Gastrointestinal: no abdominal pain, no diarrhea, no hematemesis, no hematochezia, no melena, no nausea, no vomiting - Genitourinary Genitourinary: no dysuria, no flank pain, no hematuria - Musculoskeletal Musculoskeletal ROS IM: arthralgias, deformity (left foot ulceration), joint swelling, no back pain - Integumentary Integumentary IM: new lesions (scabs), skin ulcer, no rash, no jaundice - Neurological Neurological ROS: no dizziness, no focal weakness, no weakness - Psychiatric Psychiatric: no anxiety, no depression - Endocrine Endocrine IM: no polydipsia, no polyuria - Allergic/Immunologic Allergic/Immunologic: no GI upset with certain foods - Constitutional Vitals: Temp Pulse Resp BP Pulse Ox 98.2 F 68 14 99/63 98 11/18/18 03:28 11/18/18 03:28 11/18/18 03:28 11/18/18 03:28 11/18/18 03:28 General appearance: Present: cooperative, mild distress, A&O X 3, answers questions appropriately Exam: see below - Head Head exam: Present: normal inspection - Eye Eye exam: Present: EOMI, PERRL. Absent: scleral icterus Pupils: Present: normal accommodation - ENT ENT exam: Present: mucous membranes dry, normal exam, normal oropharynx - Neck Neck exam general surgery: Present: full ROM, supple, trachea midline. Absent: lymphadenopathy, tenderness, nuchal rigidity, thyromegaly - Respiratory Respiratory exam: Present: CTAB. Absent: chest wall tenderness, rales, respiratory distress, rhonchi, wheezes - Cardiovascular Cardiovascular exam: Present: RRR, +S1, +S2. Absent: clicks, diastolic murmur, rubs, systolic murmur - GI/Abdominal GI/Abdominal exam: Present: normal bowel sounds, soft. Absent: guarding, hepatomegaly, mass, rebound, splenomegaly, tenderness - Extremities Exam Extremities exam: Present: full ROM, tenderness (left foot -- wrapped and hilario ssed post-op), warm, radial pulses palpable and symmetrical. Absent: calf tenderness, pedal edema - Back Exam Back exam: Present: normal inspection. Absent: CVA tenderness (L), CVA tenderness (R) - Neurological Exam Neurological exam: Present: alert, CN II-XII intact, oriented X3, no focal deficits, strengths equal and symetr throughout - Psychiatric Psychiatric exam: Present: flat affect - Skin Skin exam: Present: dry, warm Additional comments: scattered scabbed ulcers/sot tissue abscesses throughout trunk, extremities Internal Med - H&P Results - Labs CBC & Chem 7: 11/18/18 03:40 11/18/18 03:40 Labs: Short CBC 11/17/18 11/18/18 Range/Units 14:45 03:40 WBC 17.8 H 11.2 H (4.3-11.1) K/mcL Hgb 11.4 L 9.1 L D (11.5-15.4) g/dL Hct 35.1 L 28.8 L (35.3-44.9) % Plt Count 465 H 360 (140-400) K/mcL Neutrophils # 13.4 H 8.0 (1.6-8.9) K/mcL BMP 11/17/18 11/18/18 14:45 03:40 Sodium 137 139 Potassium 3.0 L 3.2 L Chloride 103 110 H Carbon Dioxide 21 L 22 L BUN 24 H 15 Creatinine 0.89 0.72 Glucose 89 82 Calcium 9.4 8.7 Liver Function 11/18/18 Range/Units 03:40 Total Bilirubin 0.3 (0.3-1.0) mg/dL AST 11 L (13-39) Units/L ALT 9 (7-52) Units/L Alkaline Phosphatase 92 (34-104) Units/L Albumin 2.9 L (3.5-5.7) g/dL - Impressions ITS Impressions Ankle X-Ray 11/17/18 12:15 IMPRESSION: Extensive soft tissue irregularity and ulceration. No radiographic evidence of osteomyelitis. D/ / 11/17/2018 12:48:15 Mc Wiggins MD / roberta Interpreting Provider: Mc Wiggins MD Lower Extremity CT 11/17/18 12:40 IMPRESSION: 1. Large deep soft tissue ulcerations over the medial and dorsal aspects of the ankle. Large area of subcutaneous edema versus abscess in the soft tissues dorsal to the ankle and midfoot measuring approximately 14 x 10.6 x 6.3 cm. 2. No acute osseous abnormality. D/ / Saulo Alvarado MD / Saulo Alvarado MD Interpreting Provider: Saulo Alvarado MD - Diagnostic Studies Other Images Status: image reviewed by me (LLE CT -- ulceration noted) - Assessment and Plan (1) Abscess of tendon sheath, left ankle and foot Current Visit: Yes Status: Acute Assessment and plan: 1. S/P surgery per Dr. Branham. 2. Podiatry consulted and co-managing patient. 3. Wound and blood cultures obtained. 4. Will treat with IV Vancomycin and Zosyn. 5. Surgical/wound care per Dr. Branham. 6. Patient at risk for endocarditis with h/o IVDA -- will order ECHO. (2) IVDU (intravenous drug user) Current Visit: Yes Status: Acute Assessment and plan: 1. ECHO to rule out valvular vegetations. 2. Follow blood cultures and continue IV antibiotics as above. 3. Consult protective services social worker as she will likely need long-term IV antibiotics in ECF given her history of IVDA. (3) DVT prophylaxis Current Visit: Yes Status: Acute Assessment and plan: 1. Heparin SQ.
[2018-11-18] MEDS: *HR* OxyCODONE/APAP 10/325 TABLET PO PRN ×5 (04:43→22:49)
[2018-11-18] MEDS: Acetaminophen 325 MG TABLET PO PRN ×2 (05:41→15:14)
[2018-11-18] MEDS: *HR* Heparin 5,000 UNIT/ML VIAL SQ SCH ×2 (05:52→18:37)
[2018-11-18] MEDS: Piperacillin/Tazobactam 3.375 GM in 0.9 % Sodium Chloride Mini Bag 100 ML IVPB SCH ×2 (08:36→16:26)
--- NOTE | 2018-11-18 09:51 | Podiatry Progress Note ---
Date of Encounter: 11/18/18 Time of Encounter: 09:25 - Assessment and Plan (1) Abscess of tendon sheath, left ankle and foot Current Visit: Yes Status: Acute 37-year-old female with history of IV drug abuse with worsening ulcerations and infections of the left foot and ankle multiple areas showing CT scan with significant abscess. Concern for necrotizing infection. s/p incision and drainage of extensive abscesses left foot and ankle Discussed surgical procedure with patient and that she could still lose her leg due to the infection present. Discussed that if her limb is even salvageable it is going to require multiple procedures like we had discussed preoperatively. No guarantees were made that she would the able to keep the leg or infection not get in her bloodstream and ultimately caused her demise. Continue antibiotics. Get infectious disease consult on Tuesday when they return. Follow-up wound cultures. Bandage change by nurse later today. Possibly use wound VAC at a later time. Subjective Interval history: s/p I&D of left foot and ankle abscesses. Says her left foot and ankle are in pain. She is sitting up in bed. Says she had breakfast. Denies filling nauseous or vomiting this morning. Denies chest pain or shortness of breath. She does admit to me today that she was using IV drugs and says she missed the veins and multiple areas on her body which is how this problem started. She says she learned her lesson. Objective - Vital Signs Vital Signs: Vital Signs Temp Pulse Resp BP Pulse Ox 11/18/18 04:41 98.5 F 82 14 104/67 97 11/18/18 03:28 98.2 F 68 14 99/63 98 11/18/18 02:41 98.1 F 74 14 100/63 98 11/18/18 02:10 97.8 F 79 14 120/77 95 11/18/18 01:33 98.1 F 75 12 109/74 95 11/18/18 01:11 97.8 F 98 12 125/68 96 11/18/18 01:01 115 20 130/84 100 11/18/18 00:51 114 20 141/83 96 11/18/18 00:41 98.2 F 130 24 129/91 96 11/17/18 21:50 98.1 F 68 15 109/71 98 11/17/18 21:42 18 110/58 11/17/18 21:06 76 104/58 97 11/17/18 19:38 80 16 105/89 99 11/17/18 18:49 81 113/77 11/17/18 17:30 116/66 11/17/18 12:13 99.3 F 101 18 125/73 98 Intake and Output 11/17/18 11/18/18 11/18/18 23:59 07:59 15:59 Intake Total 2350 / 2350 638 / 638 Output Total 540 / 540 Balance 2350 / 2350 -540 / -540 638 / 638 Intake: IV Fluids 2350 / 2350 638 / 638 0.9 % Sodium Chloride 1,000 ML 2000 / 2000 @ 999 mls/hr IVC .Q1H1M ONE Rx# :[id number] KCl 20 mEq in 0.9% Sodium 388 / 388 Chloride 20 meq In 1,000 ml @ 100 mls/hr IVC .Q10H DAGOBERTO Rx#: [id number] Zosyn 3.375 GM In 0.9 % Sodium 100 / 100 Chloride (Mini-Bag +) 100 ML @ 25 mls/hr IVPB ONCE ONE Rx#: [id number] Vancocin 1,000 MG In 0.9 % 250 / 250 Sodium Chloride 250 ML @ 167 mls/hr IVPB Q12H DAGOBERTO Rx#: [id number] Vancocin 1,250 MG In 0.9 % 250 / 250 Sodium Chloride 250 ML @ 167 mls/hr IVPB ONCE ONE Rx#: [id number] Output: Urine 500 / 500 Estimated Blood Loss 40 / 40 Other: Weight 71.8 kg - Exam Exam: Well-developed female with poor dentition Capillary refill time intact to digits of the left foot. Left foot is warm to touch. Bandage is clean dry and intact. There is no strikethrough. - Lab Result Diagrams: 11/18/18 03:40 11/18/18 03:40 Labs: Abnormal lab results WBC 11.2 K/mcL (4.3-11.1) H 11/18/18 03:40 RBC 3.44 M/mcL (3.82-4.97) L 11/18/18 03:40 Hgb 9.1 g/dL (11.5-15.4) L D 11/18/18 03:40 Hct 28.8 % (35.3-44.9) L 11/18/18 03:40 MCH 26.5 pg (28.0-33.3) L 11/18/18 03:40 MPV 9.0 fL (9.4-12.4) L 11/18/18 03:40 ESR >= 130 mm/hr (0-15) H 11/17/18 14:45 Potassium 3.2 mEq/L (3.5-5.1) L 11/18/18 03:40 Chloride 110 mEq/L (98-107) H 11/18/18 03:40 Carbon Dioxide 22 mEq/L (23-29) L 11/18/18 03:40 AST 11 Units/L (13-39) L 11/18/18 03:40 C-Reactive Protein 129 mg/L (Less than 10) H 11/17/18 14:45 Albumin 2.9 g/dL (3.5-5.7) L 11/18/18 03:40 Globulin 3.6 g/dL (2.4-3.5) H 11/18/18 03:40 Albumin/Globulin Ratio 0.8 (1.1-2.2) L 11/18/18 03:40 Microbiology, Last 48 Hours 11/17/18 17:58 Wound Culture - Preliminary Left Ankle Culture is incubating. 11/17/18 14:45 Blood Culture - Preliminary Peripheral Venipuncture Culture is incubating and being continuously monitored for growth. Final report to follow. Consult Discharge Plan - Plan Referrals: NONE,PCP [Primary Care Provider] -
--- NOTE | 2018-11-18 12:04 | Event Note ---
Date of Encounter: 11/18/18 Time of Encounter: 12:02 Patient is a 37y/o female admitted for abscess of tendon sheath of left ankle and foot Pt is seen and examined with family present at bedside pt is s/p incision and drainage of abscesses of left foot and ankle LE dressing intact Pt reports pain is adequately controlled labs and vitals reviewed noted to have hypokalemia, K supplemented will continue wound care as per Podiatry continue IV Vanc and Zosyn f/u blood and wound cultures ID evaluation requested. Care plan discussed with patient/RN/family
[2018-11-18] MEDS ORDERED: 0.9 % Sodium Chloride 250 ML ONE (18:35)
[2018-11-19] MEDS: Piperacillin/Tazobactam 3.375 GM in 0.9 % Sodium Chloride Mini Bag 100 ML IVPB SCH ×3 (00:01→15:09)
[2018-11-19] MEDS: *HR* OxyCODONE/APAP 10/325 TABLET PO PRN ×4 (04:39→21:43)
[2018-11-19 05:16] LABS: Basophils % 0.2 %; Eosinophils # 0.3 K/mcL (0.0-0.6); Eosinophils % 2.5 %; Hematocrit 29.9 % (35.3-44.9); Hemoglobin 9.7 g/dL (11.5-15.4); Immature Granulocytes % 0.5 % (0-4); Lymphocytes # 2.3 K/mcL (0.6-4.6); Lymphocytes % 18.7 %; Mean Corpuscular HGB Conc 32.4 g/dL (31.6-35.5); Mean Corpuscular Hemoglobin 26.9 pg (28.0-33.3); Mean Corpuscular Volume 83.1 fL (83.0-100.0); Mean Platelet Volume 9.4 fL (9.4-12.4); Monocytes # 0.8 K/mcL (0.0-1.3); Monocytes % 6.5 %; Neutrophils # 8.6 K/mcL (1.6-8.9); Platelet Count 351 K/mcL (140-400); Red Cell Distribution Width 13.5 % (11.5-14.5); Segmented Neutrophils % 71.6 %
[2018-11-19 05:28] LABS: BUN/Creatinine Ratio 15 (6-26); Blood Urea Nitrogen 10 mg/dL (6-20); Calcium 8.9 mg/dL (8.6-10.3); Carbon Dioxide 19 mEq/L (23-29); Chloride 111 mEq/L (98-107); Glucose 83 mg/dL (70-105); Magnesium 1.6 mg/dL (1.6-2.6); Osmolality,Calculated 286 (280-300); Phosphorous 2.9 mg/dL (2.7-4.5); Potassium 3.9 mEq/L (3.5-5.1); Sodium 139 mEq/L (136-145); eGFR For Non-African Americans > 60 (> 60)
[2018-11-19] MEDS: *HR* Heparin 5,000 UNIT/ML VIAL SQ SCH ×2 (05:50→18:00)
--- NOTE | 2018-11-19 09:59 | Electrocardiograph Report ---
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
--- NOTE | 2018-11-19 12:03 | Internal Med Progress Note ---
Hospitalist Progress Note - Encounter Date of Encounter: 11/19/18 Time of Encounter: 12:01 - Subjective Interval History: Patient seen and examined at bedside. Resting in bed and states pain is adequately controlled with current pain medications. Denies any headache, chest pain, sob, abd pain, n/v, fever, or chills at this time. No overnight events reported Ten point ROS is negative except as listed above - Exam Vitals: Temp Pulse Resp BP Pulse Ox 98.1 F 70 16 95/65 97 11/19/18 11:39 11/19/18 11:39 11/19/18 11:39 11/19/18 11:39 11/19/18 11:39 Exam: General: No acute distress, AAO x 3 HEENT: EOMI, PERRLA, NC/AT, no scleral icterus Respiratory: Clear to auscultate bilaterally, no wheezing, no rales Cardiovascular: Regular, Rate, Rhythm, No murmurs GI: Soft, Non tender, non distended, normal bowel sounds Ext: distal LLE dressing intact, diffuse skin excoriations on distal lower extremities bilaterally, no tenderness, positive pulses Neuro: AAO x 3, no focal deficits Rest of the clinical exam is non contributory - Assessment and Plan (1) IVDU (intravenous drug user) Current Visit: Yes Status: Acute Assessment and Plan: Continue broad spectrum IV abx ID evaluation has been requested 2D echo report reviewed, no vegetations reported, will closely monitor, if pt is noted to have positive blood cultures, will consider PATT continue wound care as per podiatry (2) Abscess of tendon sheath, left ankle and foot Current Visit: Yes Status: Acute Assessment and Plan: Podiatry on board and evaluation appreciated s/p I& D on 11/17/18 continue broad spectrum IV abx wound care management as per podiatry f/u wound and blood cultures pain control as needed (3) DVT prophylaxis Current Visit: Yes Status: Acute Assessment and Plan: Heparin SQ - Time Spent with Patient Total time spent is greater than 50% in coordination of care (as documented) at patient's floor/unit and/or counseling patient: 25 - 35 minutes Plan of Care Discussed with: patient (patient/RN) Internal Medicine: Result - Labs CBC & Chem 7: 11/19/18 04:58 11/19/18 04:58 Labs: Short CBC 11/17/18 11/19/18 Range/Units 14:45 04:58 WBC 17.8 H 12.1 H (4.3-11.1) K/mcL Hgb 11.4 L 9.7 L (11.5-15.4) g/dL Hct 35.1 L 29.9 L (35.3-44.9) % Plt Count 465 H 351 (140-400) K/mcL Neutrophils # 13.4 H 8.6 (1.6-8.9) K/mcL BMP 11/17/18 11/19/18 14:45 04:58 Sodium 137 139 Potassium 3.0 L 3.9 Chloride 103 111 H Carbon Dioxide 21 L 19 L BUN 24 H 10 Creatinine 0.89 0.68 Glucose 89 83 Calcium 9.4 8.9 - Impressions Impressions Echocardiogram 11/18/18 02:55 Impressions: LVEF 65%. Normal LV chamber size, wall thickness and function. Normal left ventricular diastolic function. Normal right ventricular structure and function. No evidence of pulmonary hypertension. No significant valvular dysfunction. No obvious vegetations visualized. Recommend repeat study or consider PATT as clinically indicated. Left Ventricular Wall Motion: Rest Echo Findings All wall segments showed normal motion. Findings: Study Quality * Technically sub-optimal due to clinical status. ECG Findings * Normal sinus rhythm. Left Ventricle * LVEF 65%. * Normal LV chamber size, wall thickness and function. * Normal left ventricular diastolic function. Right Ventricle * Normal right ventricular structure and function. Left Atrium * Normal left atrial size. Right Atrium * Normal right atrial size. Aortic Valve * Grossly trileaflet aortic valve. Normal appearing function. * No aortic regurgitation. * No aortic stenosis. Mitral Valve * Normal mitral valve structure and function. * No mitral regurgitation. * No mitral stenosis. Tricuspid Valve * Grossly normal tricuspid valve structure and function. * Trace tricuspid regurgitation. * No evidence of pulmonary hypertension. Pulmonic Valve * Grossly normal structure and function. * No pulmonic regurgitation. Aorta * Normally sized aortic root. Pericardium * The pericardium appears normal. IVC * Normal IVC dimensions and inspiratory collapse. Pulmonary Artery * Normal visualized portions of the main pulmonary artery. Consult Discharge Plan - Plan Referrals: NONE,PCP [Primary Care Provider] -
[2018-11-19] MEDS: Ketorolac 15 MG/ML VIAL IVP PRN ×2 (12:33→18:29)
[2018-11-19] MEDS ORDERED: Sennosides/Docusate Sodium TABLET PO SCH (21:00)
[2018-11-20] MEDS: Piperacillin/Tazobactam 3.375 GM in 0.9 % Sodium Chloride Mini Bag 100 ML IVPB SCH ×2 (00:30→08:01)
[2018-11-20] MEDS: *HR* OxyCODONE/APAP 10/325 TABLET PO PRN ×5 (04:00→19:54)
[2018-11-20] MEDS: *HR* Heparin 5,000 UNIT/ML VIAL SQ SCH ×2 (05:13→17:52)
[2018-11-20 05:29] LABS: Basophils % 0.3 %; Eosinophils # 0.4 K/mcL (0.0-0.6); Eosinophils % 3.9 %; Hematocrit 32.2 % (35.3-44.9); Immature Granulocytes % 0.7 % (0-4); Immature Platelets 1.4 % (1.1-6.1); Lymphocytes # 2.7 K/mcL (0.6-4.6); Lymphocytes % 30.1 %; Mean Corpuscular HGB Conc 31.1 g/dL (31.6-35.5); Mean Corpuscular Hemoglobin 26.2 pg (28.0-33.3); Mean Corpuscular Volume 84.3 fL (83.0-100.0); Mean Platelet Volume 9.4 fL (9.4-12.4); Monocytes # 0.6 K/mcL (0.0-1.3); Monocytes % 7.2 %; Platelet Count 333 K/mcL (140-400); Red Blood Count 3.82 M/mcL (3.82-4.97); Red Cell Distribution Width 13.6 % (11.5-14.5); Segmented Neutrophils % 57.8 %
[2018-11-20 05:31] LABS: BUN/Creatinine Ratio 19 (6-26); Blood Urea Nitrogen 11 mg/dL (6-20); Carbon Dioxide 20 mEq/L (23-29); Chloride 112 mEq/L (98-107); Glucose 86 mg/dL (70-105); Magnesium 1.7 mg/dL (1.6-2.6); Osmolality,Calculated 289 (280-300); Phosphorous 3.8 mg/dL (2.7-4.5); Potassium 3.9 mEq/L (3.5-5.1); Sodium 140 mEq/L (136-145); eGFR For Non-African Americans > 60 (> 60)
[2018-11-20 05:47] LABS: Neutrophils # 5.1 K/mcL (1.6-8.9); Platelet Estimate Normal (Normal)
[2018-11-20] MEDS ORDERED: Aminoglycoside Consult 1 EACH MC ONE (07:36)
--- NOTE | 2018-11-20 08:52 | Infectious Disease Consult ---
Infectious Disease-Consult - Encounter Date/Time Date of Encounter: 11/20/18 Time of Encounter: 09:44 - Data of Consult Patient: yusuf to practice Reason for consult: Left foot/ankle abscess Consult date: 11/20/18 Requesting Physician: Kavita Stroud MD Primary Care Provider: PCP NONE - HPI HPI: Ms. goldberg is a 37-year-old female with past medical history of anxiety, depression, and IV drug use. The patient was admitted to the hospital 11/17/18 for IV drug use and left foot and ankle abscess. We are consulted for further workup and treatment recommendations for left foot and ankle abscess. Briefly, the patient is a 37-year-old female with a past medical history as stated above. The patient presented to the emergency department with a complaint of white one-month history of a left foot and ankle wound that had been progressing to the point where she was unable to ambulate. Upon arrival, she had a low-grade temp and was tachycardic. Laboratory studies revealed leukocytosis. Renal function was normal. No LFTs or lactic acid was checked. ESR was greater than 130 and CRP was 129. She had a left ankle x-ray that showed extensive soft tissue irregularity and ulceration, but no osteomyelitis. She also had a lower extremity CT that showed a large deep soft tissue ulceration of the medial and dorsal aspect of the ankle as well as an abscess in the soft tissues of the dorsal ankle and midfoot measuring approximately 14 x 10.6 x 6.3 cm. There was no osseous abnormality noted. Podiatry was consult and took the patient to the operating room and performed an I&D of the left foot and I&D of the left ankle/leg. Intraoperative cultures are positive for gram- positive cocci, presumptively a strep species. Swab culture of the wound obtained preop is positive for Enterobacter cloacae. A transthoracic echocardiogram that showed an EF of 65% and no valvular vegetations. Her leukocytosis has improved. She has remained afebrile. Currently, she is on Vanco and Zosyn. We have been asked to evaluate and make further recommendations. During my exam today, the patient states that she injected in the area of the infection about a month ago. She states she started having chills and overall feeling poorly about a week prior to admission. She states she developed an ulcer about 2 days after injecting and it progressively got worse. She denies any headache or neck pain. Denies chest pain, shortness of breath, or cough. Reports some nausea with vomiting and poor appetite prior to admission. Denies abdominal pain or urinary complaints. Denies oral thrush. Reports she has multiple Lesions to several areas of her body that she is used for injection sites. Today, she states that her left lower extremity is still very painful and describes it as a pressure. Denies any numbness or tingling. The patient lives at home with her significant other. She does not work outside the home. She smokes about a pack cigarettes per day. Injects non-prescribed Suboxone as stated above. Denies alcohol use. States she has been told in the past that she has hepatitis C. Denies other chronic infectious diseases. Denies any recent travel outside the [facility]. Denies any pet or animal exposures. - ROS Review of Systems: All systems reviewed and no additional remarkable complaints except as stated. - Results CBC & Chem 7: 11/23/18 03:05 11/23/18 03:05 - Line Documentation Line Documentation: PICC Line (Left upper extremity with transparent dressing clean, dry, and intact.) - Exam Vitals: Temp Pulse Resp BP Pulse Ox 98.3 F 72 16 107/71 96 11/20/18 08:43 11/20/18 08:43 11/20/18 08:43 11/20/18 08:43 11/20/18 08:43 Exam: Head: Atraumatic, normal inspection, normocephalic. Eye: EOMI, PERRLA, no scleral icterus noted. ENT: Mucous membranes moist. No odontogenic infection noted. Neck: Normal inspection, no meningismus. Respiratory: Clear to auscultation. No rales, respiratory distress, rhonchi, or wheezes noted. Cardiovascular: Regular rate and rhythm, S1 and S2 audible. No murmurs, rubs, or gallops. GI: Soft, nondistended, normal bowel sounds. Extremities: Left lower extremity dressing clean, dry, and intact. Positive motor and sensation to the distal extremity. Multiple scabbed lesions in various stages of healing noted to the bilateral lower extremities. No erythema or fluctuance noted surrounding the site. Back: Normal inspection. No vertebral tenderness noted. Neurological: Alert, oriented 3, no focal deficits. Psychiatric: normal affect, normal mood. Skin: Dry, intact, warm. Normal color. No rashes. cefTRIAXone [Rocephin] 2,000 mg IVPB DAILY #42 vial 11/22/18 [Rx] Allergy/AdvReac Type Severity Reaction Status Date / Time No Known Allergies Allergy Verified 11/17/18 19:02 - Assessment and Plan (1) Sepsis Current Visit: Yes Status: Acute She had 2 sepsis criteria on admission. Likely secondary to left foot abscess and cellulitis. Improved. Leukocytosis and tachycardia have resolved. She has remained afebrile. Blood cultures drawn 11/17/18 are no growth to date 2 sets. Qualifiers: Sepsis type: sepsis due to unspecified organism Qualified Code(s): A41.9 - Sepsis, unspecified organism SNOMED Code(s): 71415357 (2) Abscess of tendon sheath, left ankle and foot Current Visit: Yes Status: Acute Causative organism: Enterobacter cloacae and Strep species. Etiology: IV drug use injection site. X-ray of the left ankle showed extensive soft tissue irregularity and ulceration, but no osteomyelitis. CT of the left lower extremity showed a large abscess. Preop ESR greater than 130, CRP 129. Podiatry consult. Status post I&D of multiple areas of the left foot, and I&D of the left ankle/leg by Dr. Stack. Operative note reviewed. Intraoperative cultures are positive for gram-positive cocci, presumptively a strep species. Culture of the Wound Is Positive for Enterobacter cloacae. Currently on Vanco and Zosyn. SNOMED Code(s): 968943345 (3) Cellulitis of left foot Current Visit: Yes Status: Acute Location: Left foot. Etiology: Likely secondary to IV drug use injection site infection. CT of the lower extremity showed findings consistent with cellulitis. Currently on Vanco and Zosyn. SNOMED Code(s): 130693891 (4) IVDU (intravenous drug user) Current Visit: Yes Status: Acute Reports injecting Suboxone IV that she gets off the street. Last use about 4 weeks ago. Check hepatitis and HIV serologies. SNOMED Code(s): 612893636 - Recommendations Recommendations: Await blood cultures to finalize. Await intraoperative cultures to finalize. Check HIV, hepatitis B, and hepatitis C serologies. Wound care and activity restrictions per the podiatry team. Discontinue vanc and zosyn. Start Rocephin 2 grams IV daily. Start flagyl 500mg PO TID. Duration treatment depends on the clinical picture, likely 4-6 weeks given the extent of the infection. Will discuss further with the podiatry team. Monitor renal function for drug toxicity and dose adjust antibiotics. consulting services project manager to assist with discharge planning. Avoid insertion of term IV access until final discharge plans are arranged. Past Med Surg Social Fam HX - Past Medical History Attestation: Yes The following information was validated with the patient. Source: patient, old records reviewed, nursing notes reviewed Medical history: other (IVDA) Additional medical history: IV drug use Psychiatric history: anxiety, depression - Past Surgical History Surgical History: other (soft tissue neck and hand surgery for abscesses) Additional surgical history: abcess removed right neck and left hand - Social History Smoking Status: Current every day smoker Packs per day: 1 Smokeless Tobacco Status: No Alcohol use: none Drug use: cocaine, IV Drug Use, other (suboxone -- not prescribed) Occupational status: unemployed Current living situation: Home - Independent Activity Level: Independent ambulation Recent Out of Country Travel Within the Last 8 Weeks: No Exposure or Possible Exposure to Illness During Travel: No - Family History Father History Unknown: Yes Mother History Unknown: Yes Consult Discharge Plan - Plan Referrals: Amanda Hughes CNP [Advanced Practice Nurse] - 12/07/18 1:45 pm NONE,PCP [Primary Care Provider] - Prescriptions: cefTRIAXone [Rocephin] 2,000 mg IVPB DAILY #42 vial - Attending Attestation I have personally performed a face to face evaluation on this patient. I have reviewed and agree with the care plan. History and Exam by me shows: Assessment and Plan: 1. Sepsis 2. Abscess of tendon sheath left ankle, foot with E cloacae and strep sp s/p I&D 3. IVDU Recommendations: Await blood cultures to finalize. Await intraoperative cultures to finalize. Check HIV, hepatitis B, and hepatitis C serologies. Wound care and activity restrictions per the podiatry team. Discontinue vanc and zosyn. Start Rocephin 2 grams IV daily. Start flagyl 500mg PO TID. Duration treatment depends on the clinical picture, likely 4-6 weeks given the extent of the infection. Will discuss further with the podiatry team. Monitor renal function for drug toxicity and dose adjust antibiotics. consulting services project manager to assist with discharge planning. Avoid insertion of term IV access until final discharge plans are arranged.
[2018-11-20 12:12] LABS: Hepatitis B Surface Antibody 4.38 mIU/mL
[2018-11-20 12:22] LABS: Hepatitis B Surface Antigen Nonreactive (Nonreactive)
[2018-11-20 12:53] LABS: HIV-1&2 Antibody & p24 Ag Nonreactive (Nonreactive)
[2018-11-20 14:00] LABS: Hepatitis C Virus Antibody Reactive (Nonreactive)
[2018-11-20] MEDS ORDERED: cefTRIAXone 2,000 MG in 0.9 % Sodium Chloride Mini Bag 100 ML IVPB SCH (14:00)
--- NOTE | 2018-11-20 14:14 | Internal Med Progress Note ---
Hospitalist Progress Note - Encounter Date of Encounter: 11/20/18 Time of Encounter: 14:11 - Subjective Interval History: Patient seen and examined earlier today with family present at bedside. Reports of left LE pain, and reports of constipation. Denies any sob,chest pain, abd pain, n/v, fever, or chills. NO overnight events reported Ten point ROS is negative except as listed above - Exam Vitals: Temp Pulse Resp BP Pulse Ox 98.3 F 72 16 107/71 96 11/20/18 08:43 11/20/18 08:43 11/20/18 08:43 11/20/18 08:43 11/20/18 08:43 Exam: General: No acute distress, AAO x 3 HEENT: EOMI, PERRLA, NC/AT, no scleral icterus Respiratory: Clear to auscultate bilaterally, no wheezing, no rales Cardiovascular: Regular, Rate, Rhythm, No murmurs GI: Soft, Non tender, non distended, normal bowel sounds Ext: distal LLE dressing intact, diffuse skin excoriations on distal lower extremities bilaterally, no tenderness, positive pulses Neuro: AAO x 3, no focal deficits Rest of the clinical exam is non contributory - Assessment and Plan (1) IVDU (intravenous drug user) Current Visit: Yes Status: Acute Assessment and Plan: Continue broad spectrum IV abx ID evaluation appreciated 2D echo report reviewed, no vegetations reported, will closely monitor, if pt is noted to have positive blood cultures, will consider PATT continue wound care as per podiatry (2) Abscess of tendon sheath, left ankle and foot Current Visit: Yes Status: Acute Assessment and Plan: Podiatry on board and evaluation appreciated s/p I& D on 11/17/18 continue broad spectrum IV abx as per ID wound care management as per podiatry Blood cultures remain negative thus far wound cultures reporting enterobacter Cloacae complex pain control as needed will continue IV abx management as per ID (3) DVT prophylaxis Current Visit: Yes Status: Acute Assessment and Plan: Heparin SQ (4) Constipation Current Visit: Yes Status: Acute Assessment and Plan: laxative support - Time Spent with Patient Total time spent is greater than 50% in coordination of care (as documented) at patient's floor/unit and/or counseling patient: 25 - 35 minutes Plan of Care Discussed with: patient (patient/RN/case management) Internal Medicine: Result - Labs CBC & Chem 7: 11/20/18 04:42 11/20/18 04:42 Labs: Short CBC 11/20/18 Range/Units 04:42 WBC 8.9 (4.3-11.1) K/mcL Hgb 10.0 L (11.5-15.4) g/dL Hct 32.2 L (35.3-44.9) % Plt Count 333 (140-400) K/mcL Neutrophils # 5.1 (1.6-8.9) K/mcL BMP 11/20/18 04:42 Sodium 140 Potassium 3.9 Chloride 112 H Carbon Dioxide 20 L BUN 11 Creatinine 0.59 L Glucose 86 Calcium 9.0 Consult Discharge Plan - Plan Referrals: NONE,PCP [Primary Care Provider] - (4) Constipation Qualifiers: Constipation type: drug induced constipation Qualified Code(s): K59.03 - Drug induced constipation
[2018-11-20] MEDS: cefTRIAXone 2,000 MG in Water for inj. (sterile) 20 ML 20 ML IVP SCH (15:23)
[2018-11-20] MEDS: Ketorolac 15 MG/ML VIAL IVP PRN (15:24)
[2018-11-20] MEDS: metroNIDAZOLE 500 MG TABLET PO SCH ×2 (15:24→19:54)
--- NOTE | 2018-11-20 15:29 | Podiatry Progress Note ---
Date of Encounter: 11/20/18 Time of Encounter: 14:00 - Assessment and Plan (1) Abscess of tendon sheath, left ankle and foot Current Visit: Yes Status: Acute s/p I&D of the left foot and ankle per 11/17 wound cultures showing enterobacter cloacae complex , surgical cultures pending and showing gram positive cocci Patient with dry dressing intact on arrival. PLAN: ID on board and following for management of IV antibiotics for cellulitis and abscess formation - currently on vanc and zosyn Dressing removed at bedside, flushed with saline Will place wound vac to promote wound healing and allow for formation of healthy granulation tissue Placed white sponge to exposed tendon areas, medium black sponge placed overtop and tracked to anterior aspect of ankle Tegaderm draping placed to ankle to protect skin Vac sealed with 150mmHg suction, good seal without leak Patient reports pain throughout procedure- requested nursing staff provide pain medication No drainage noted at this time Wound vac will need changed every MWF- may be changed per nursing staff Will need SW on board for discharge planning Will need to follow in wound care center with 1 week after discharge. Continue to monitor, call with any issues or concerns, fevers, chills, n/v or fls. Patient denies any cp or sob. (2) Cellulitis of left foot Current Visit: Yes Status: Acute ID on board and following for antibiotic management Subjective Interval history: Patient s.p I&D of left foot and ankle on multiple planes- abscess formation with concern of narcotizing fasciitis. Patient resting on arrival. She is anxious and states she is in constant 8/10 pain. Patient with known hx of IVDA, reports using for 10 years. Patient dressing to left foot CDI on arrival. Patient denies any known fevers, chills, n/v or fls. Objective - Vital Signs Vital Signs: Vital Signs Temp Pulse Resp BP Pulse Ox 11/20/18 08:43 98.3 F 72 16 107/71 96 11/20/18 08:00 96 11/20/18 04:58 99.0 F 72 14 105/71 97 11/19/18 20:16 98.1 F 76 16 93/60 98 Intake and Output 11/19/18 11/20/18 11/20/18 23:59 07:59 15:59 Intake Total 350 / 350 350 / 350 120 / 120 Output Total 400 / 400 0 / 0 Balance -50 / -50 350 / 350 120 / 120 Intake: IV Fluids 350 / 350 350 / 350 Zosyn 3.375 GM In 0.9 % Sodium 100 / 100 100 / 100 Chloride (Mini-Bag +) 100 ML @ 25 mls/hr IVPB Q8HR DAGOBERTO Rx#: [id number] Vancocin 1,000 MG In 0.9 % 250 / 250 250 / 250 Sodium Chloride 250 ML @ 167 mls/hr IVPB Q12H DAGOBERTO Rx#: [id number] Oral 0 / 0 0 / 0 120 / 120 Output: Urine 400 / 400 0 / 0 Other: Meal Dinner Percent of Meal Consumed 0% Stool Size Small Stool Consistency formed Stool Characteristics Normal for Patient Stool Color Brown # Bowel Movements 1 - Exam Exam: Podiatry General Exam: General appearance: alert awake oriented X 3. Calm at times and pleasant, no acute distress.. Vascular: Pedal pulses +2/4 DP/PT , No evidence of cyanosis, pallor or rubor, Edema graded at 1+/4, Skin Temperature warm, No calf pain with manual compression. capillary refill time is immediate to digits. Neurologic: Sensation intact with light touch to foot. . Postop Exam: S/p I&D of left foot Retention sutures noted with open surgical wound with exposure of wound bed and exposure of the tendon along the anterior and medial aspect of the left malleolus , no active drainage, no odor,mild erythema, no streaking. Minimal edema. Wound bed extends from the dorsal/anterior aspect of the foot and ankle medially along the medial malleolus. There are retention sutures proximal to the wound as well to the posterior aspect of the foot. - Lab Result Diagrams: 11/20/18 04:42 11/20/18 04:42 Labs: Abnormal lab results Hgb 10.0 g/dL (11.5-15.4) L 11/20/18 04:42 Hct 32.2 % (35.3-44.9) L 11/20/18 04:42 MCH 26.2 pg (28.0-33.3) L 11/20/18 04:42 MCHC 31.1 g/dL (31.6-35.5) L 11/20/18 04:42 ESR >= 130 mm/hr (0-15) H 11/17/18 14:45 Chloride 112 mEq/L (98-107) H 11/20/18 04:42 Carbon Dioxide 20 mEq/L (23-29) L 11/20/18 04:42 Creatinine 0.59 mg/dL (0.60-1.20) L 11/20/18 04:42 AST 11 Units/L (13-39) L 11/18/18 03:40 C-Reactive Protein 129 mg/L (Less than 10) H 11/17/18 14:45 Albumin 2.9 g/dL (3.5-5.7) L 11/18/18 03:40 Globulin 3.6 g/dL (2.4-3.5) H 11/18/18 03:40 Albumin/Globulin Ratio 0.8 (1.1-2.2) L 11/18/18 03:40 Vancomycin Trough 18 mcg/mL (5-10) H 11/19/18 04:58 Hep Bs Antibody 4.38 mIU/mL (10.00-) L 11/20/18 10:49 Hepatitis C Ab Screen Reactive (Nonreactive) H 11/20/18 10:49 Microbiology, Last 48 Hours 11/18/18 01:13 Wound Culture - Preliminary Left Foot Gram Positive Cocci 11/18/18 01:11 Acid Fast Stain - Final Left Foot 11/17/18 14:45 Blood Culture - Preliminary Peripheral Venipuncture Culture is incubating and being continuously monitored for growth. Final report to follow. 11/17/18 14:45 Blood Culture - Preliminary Peripheral Venipuncture Culture is incubating and being continuously monitored for growth. Final report to follow. 11/17/18 17:58 Wound Culture - Final Left Ankle Enterobacter cloacae complex 11/18/18 01:13 Fungal Culture - Preliminary Left Foot Culture is incubating. 11/18/18 01:13 Anaerobic Culture - Preliminary Left Foot Culture is incubating. 11/18/18 01:13 Gram Stain - Final Left Foot Consult Discharge Plan - Plan Referrals: NONE,PCP [Primary Care Provider] -
[2018-11-20] MEDS: Sennosides/Docusate Sodium TABLET PO SCH (19:54)
[2018-11-20] MEDS: *HR* Promethazine 25 MG/ML VIAL IVP PRN (23:57)
[2018-11-21] MEDS: *HR* OxyCODONE/APAP 10/325 TABLET PO PRN ×4 (00:01→09:52)
[2018-11-21] MEDS: Ketorolac 15 MG/ML VIAL IVP PRN ×3 (02:38→19:40)
[2018-11-21 07:31] LABS: Basophils % 0.5 %; Eosinophils # 0.3 K/mcL (0.0-0.6); Eosinophils % 4.3 %; Hematocrit 28.4 % (35.3-44.9); Hemoglobin 9.2 g/dL (11.5-15.4); Immature Granulocytes % 0.4 % (0-4); Lymphocytes # 2.7 K/mcL (0.6-4.6); Lymphocytes % 37.2 %; Mean Corpuscular HGB Conc 32.4 g/dL (31.6-35.5); Mean Corpuscular Hemoglobin 26.9 pg (28.0-33.3); Mean Platelet Volume 9.4 fL (9.4-12.4); Monocytes # 0.7 K/mcL (0.0-1.3); Monocytes % 9.2 %; Neutrophils # 3.5 K/mcL (1.6-8.9); Platelet Count 354 K/mcL (140-400); Red Blood Count 3.42 M/mcL (3.82-4.97); Red Cell Distribution Width 13.3 % (11.5-14.5); Segmented Neutrophils % 48.4 %
[2018-11-21 07:42] LABS: BUN/Creatinine Ratio 14 (6-26); Blood Urea Nitrogen 9 mg/dL (6-20); Calcium 9.4 mg/dL (8.6-10.3); Carbon Dioxide 23 mEq/L (23-29); Chloride 106 mEq/L (98-107); Glucose 84 mg/dL (70-105); Magnesium 1.7 mg/dL (1.6-2.6); Osmolality,Calculated 288 (280-300); Phosphorous 3.8 mg/dL (2.7-4.5); Potassium 3.2 mEq/L (3.5-5.1); Sodium 140 mEq/L (136-145); eGFR For Non-African Americans > 60 (> 60)
[2018-11-21 08:08] LABS: Hepatitis B Surface Antigen Nonreactive (Nonreactive)
[2018-11-21] MEDS: metroNIDAZOLE 500 MG TABLET PO SCH ×3 (08:36→20:57)
[2018-11-21] MEDS: Sennosides/Docusate Sodium TABLET PO SCH ×2 (08:36→20:57)
[2018-11-21 08:37] LABS: Hepatitis B Core IgM Nonreactive (Nonreactive)
[2018-11-21] MEDS: *HR* Promethazine 25 MG/ML VIAL IVP PRN (08:37)
[2018-11-21 08:38] LABS: Hepatitis A Antibody IgM Nonreactive (Nonreactive)
--- NOTE | 2018-11-21 10:40 | Infectious Disease Progress No ---
ID Progress Note Date of Encounter: 11/21/18 Time of Encounter: 10:38 - Subjective Subjective: Patient seen and examined. No acute events overnight. Patient complains of pressure-like pain in the left foot and ankle. Denies fevers, chills, rigors. Denies chest pain, shortness of breath, or cough. Reports some nausea with vomiting overnight. States she was able to eat some breakfast this morning. Denies diarrhea or constipation. Last bowel movement was this morning. Denies abdominal pain or urinary complaints. States vaginal itching and discharge are improved. Denies oral thrush or any skin lesions. - Objective CBC & Chem 7: 11/23/18 03:05 11/23/18 03:05 - Line Documentation Line Documentation: PICC Line (Left upper extremity with transparent dressing clean, dry, and intact.) - Exam Vitals: Temp Pulse Resp BP Pulse Ox 98.7 F 61 17 110/72 97 11/21/18 07:02 11/21/18 07:02 11/21/18 07:02 11/21/18 07:02 11/21/18 07:02 Exam: Head: Atraumatic, normal inspection, normocephalic. Eye: EOMI, PERRLA, no scleral icterus noted. ENT: Mucous membranes moist. No odontogenic infection noted. Neck: Normal inspection, no meningismus. Respiratory: Clear to auscultation. No rales, respiratory distress, rhonchi, or wheezes noted. Cardiovascular: Regular rate and rhythm, S1 and S2 audible. No murmurs, rubs, or gallops. GI: Soft, nondistended, normal bowel sounds. Extremities: Left lower extremity dressing clean, dry, and intact. Wound VAC noted with small amount of serous sanguinous drainage noted in the canister. Positive motor and sensation to the distal extremity. Multiple scabbed lesions in various stages of healing noted to the bilateral lower extremities. No erythema or fluctuance noted surrounding the site. Neurological: Alert, oriented 3, no focal deficits. Psychiatric: normal affect, normal mood. Skin: Dry, intact, warm. Normal color. No rashes. - Assessment and Plan (1) Sepsis Current Visit: Yes Status: Acute She had 2 sepsis criteria on admission. Likely secondary to left foot abscess and cellulitis. Improved. Leukocytosis and tachycardia have resolved. She has remained afebr ile. Blood cultures drawn 4/19/19 are no growth to date 2 sets. Qualifiers: Sepsis type: sepsis due to unspecified organism Qualified Code(s): A41.9 - Sepsis, unspecified organism SNOMED Code(s): 96757071 (2) Abscess of tendon sheath, left ankle and foot Current Visit: Yes Status: Acute Causative organism: Enterobacter cloacae and Strep species. Etiology: IV drug use injection site. X-ray of the left ankle showed extensive soft tissue irregularity and ulceration, but no osteomyelitis. CT of the left lower extremity showed a large abscess. Preop ESR greater than 130, CRP 129. Podiatry consult. Status post I&D of multiple areas of the left foot, and I&D of the left ankle/leg or by Dr. Stack. Operative note reviewed. Intraoperative cultures are positive for S. gordonnii and GNR. Culture of the Wound Is Positive for Enterobacter cloacae. Currently on Rocephin. SNOMED Code(s): 355980289 (3) Cellulitis of left foot Current Visit: Yes Status: Acute Location: Left foot. Etiology: Likely secondary to IV drug use injection site infection. CT of the lower extremity showed findings consistent with cellulitis. Currently on Rocephin. SNOMED Code(s): 592056310 (4) IVDU (intravenous drug user) Current Visit: Yes Status: Acute Reports injecting Suboxone IV that she gets off the street. Last use about 4 weeks ago. Hep C positive. Hep B non-immune. HIV nonreactive. SNOMED Code(s): 512640777 (5) Hepatitis C Current Visit: Yes Status: Acute Qualifiers: Viral hepatitis chronicity: chronic Hepatic coma status: without hepatic coma Qualified Code(s): B18.2 - Chronic viral hepatitis C SNOMED Code(s): 80488742 - Recommendations Recommendations: Check ESR and CRP in the AM. Await blood cultures to finalize. Await intraoperative cultures to finalize. Wound care and activity restrictions per the podiatry team. Continue Rocephin 2 grams IV daily. Continue flagyl 500mg PO TID. Duration treatment depends on the clinical picture, likely 4-6 weeks given the extent of the infection. Continue flagyl until anaerobic cultures finalize. If negative, can discontinue, otherwise leave on until follow up with ID. Monitor renal function for drug toxicity and dose adjust antibiotics. ground services instructor to assist with discharge planning. Avoid insertion of term IV access until final discharge plans are arranged. Consult Discharge Plan - Plan Referrals: Amanda Hughes CNP [Advanced Practice Nurse] - 12/07/18 1:45 pm NONE,PCP [Primary Care Provider] - Prescriptions: cefTRIAXone [Rocephin] 2,000 mg IVPB DAILY #42 vial - Attending Attestation I have personally performed a face to face evaluation on this patient. I have reviewed and agree with the care plan. History and Exam by me shows: Assessment and Plan: 1. Sepsis 2. Abscess of tendon sheath left ankle, foot with E cloacae and strep sp s/p I&D 3. IVDU Recommendations: continue rocephin and flagyl for now duration of treatment depends on clinical picture
[2018-11-21 12:44] LABS: Hepatitis C Virus Antibody Reactive (Nonreactive)
--- NOTE | 2018-11-21 13:10 | Internal Med Progress Note ---
Hospitalist Progress Note - Encounter Date of Encounter: 11/21/18 Time of Encounter: 13:08 - Subjective Interval History: Pt seen and examined with RN present at bedside. Pt reports of being severely anxious. Denies any chest pain, sob, abd pain,n/v, fever, or chills. Wound vac placed by podiatry yesterday (11/20/18). No overnight events reported Ten point ROS is negative except as listed above - Exam Vitals: Temp Pulse Resp BP Pulse Ox 98.4 F 60 17 101/65 96 11/21/18 10:44 11/21/18 10:44 11/21/18 10:44 11/21/18 10:44 11/21/18 10:44 Exam: General: No acute distress, AAO x 3 HEENT: EOMI, PERRLA, NC/AT, no scleral icterus Respiratory: Clear to auscultate bilaterally, no wheezing, no rales Cardiovascular: Regular, Rate, Rhythm, No murmurs GI: Soft, Non tender, non distended, normal bowel sounds Ext: distal LLE dressing intact, diffuse skin excoriations on distal lower extremities bilaterally, no tenderness, positive pulses Neuro: AAO x 3, no focal deficits Rest of the clinical exam is non contributory - Assessment and Plan (1) IVDU (intravenous drug user) Current Visit: Yes Status: Acute Assessment and Plan: Continue broad spectrum IV abx ID evaluation appreciated 2D echo report reviewed, no vegetations reported, will closely monitor, if pt is noted to have positive blood cultures, will consider PATT continue wound care as per podiatry (2) Abscess of tendon sheath, left ankle and foot Current Visit: Yes Status: Acute Assessment and Plan: Podiatry on board and evaluation appreciated s/p I& D on 11/17/18 continue broad spectrum IV abx as per ID wound care management as per podiatry Blood cultures remain negative thus far wound cultures reporting enterobacter Cloacae complex pain control as needed will continue IV abx management as per ID (3) DVT prophylaxis Current Visit: Yes Status: Acute Assessment and Plan: Heparin SQ (4) Constipation Current Visit: Yes Status: Acute Assessment and Plan: laxative support (5) Hypokalemia Current Visit: Yes Status: Acute Assessment and Plan: K supplemented continue to monitor electrolytes and replace as needed - Time Spent with Patient Total time spent is greater than 50% in coordination of care (as documented) at patient's floor/unit and/or counseling patient: 25 - 35 minutes Plan of Care Discussed with: patient (patient/RN/pharmacist/case management) Internal Medicine: Result - Labs CBC & Chem 7: 11/21/18 06:53 11/21/18 06:53 Labs: Short CBC 11/21/18 Range/Units 06:53 WBC 7.3 (4.3-11.1) K/mcL Hgb 9.2 L (11.5-15.4) g/dL Hct 28.4 L (35.3-44.9) % Plt Count 354 (140-400) K/mcL Neutrophils # 3.5 (1.6-8.9) K/mcL BMP 11/21/18 06:53 Sodium 140 Potassium 3.2 L Chloride 106 Carbon Dioxide 23 BUN 9 Creatinine 0.64 Glucose 84 Calcium 9.4 Consult Discharge Plan - Plan Referrals: NONE,PCP [Primary Care Provider] - __ (4) Constipation Qualifiers: Constipation type: drug induced constipation Qualified Code(s): K59.03 - Drug induced constipation
--- NOTE | 2018-11-21 13:32 | Podiatry Progress Note ---
Date of Encounter: 11/21/18 Time of Encounter: 12:00 - Assessment and Plan (1) Abscess of tendon sheath, left ankle and foot Current Visit: Yes Status: Acute s/p I&D of the left foot and ankle per 11/17 wound cultures showing enterobacter cloacae complex , surgical cultures pending and showing staphlococcus gordonii and a gram neg jeff Patient with wound vac intact and running without issue at this time. 25cc serosang drainage to canister PLAN: ID on board and following for management of IV antibiotics for cellulitis and abscess formation - patient was switched from vancomycin to rocephin and flagyl on 11/20 wbc 7.3 and afebile Wound vac to remain intact, will change tomorrow at bedside, will also plan for repeat wound cultures with dressing change tomorrow Wound vac paperwork filled out and placed to patients box on unit for discharge Patient reports improvement in pain from yesterdays exam , resting at this time Wound vac will need changed every MWF- orders placed Will need SW on board for discharge planning Will need to follow in wound care center with 1 week after discharge. - plan for eventual graft placement Continue to monitor, call with any issues or concerns, fevers, chills, n/v or fls. Patient denies any cp or sob. (2) Cellulitis of left foot Current Visit: Yes Status: Acute ID on board and following for antibiotic management Subjective Interval history: Patient s.p I&D of left foot and ankle on multiple planes- abscess formation with concern of narcotizing fasciitis. Patient resting on arrival. States she is in less pain than yesterday. she was asleep on arrival and states they just gave her pain medication. Patient with known hx of IVDA, reports using for 10 years. Patient wound vac intact and running on arrival and without leak. Patient denies any known fevers, chills, n/v or fls. Objective - Vital Signs Vital Signs: Vital Signs Temp Pulse Resp BP Pulse Ox 11/21/18 10:44 98.4 F 60 17 101/65 96 11/21/18 07:02 98.7 F 61 17 110/72 97 11/21/18 04:04 98.4 F 66 15 109/70 98 11/20/18 23:57 98.0 F 83 15 138/92 99 11/20/18 20:23 98.3 F 68 15 102/67 97 11/20/18 15:23 98.3 F 85 16 119/78 97 Intake and Output 11/20/18 11/21/18 11/21/18 23:59 07:59 15:59 Intake Total 0 / 0 0 / 0 240 / 240 Output Total 0 / 0 Balance 0 / 0 0 / 0 240 / 240 Intake: Oral 0 / 0 0 / 0 240 / 240 Output: Urine 0 / 0 Other: Meal Breakfast Percent of Meal Consumed 100% Weight 72.3 kg Patient Weight 11/21/18 23:59 Weight 72.3 kg - Exam Exam: CONSTITUTIONAL: Awake and alert , calm, oriented x3 VASCULAR: Toes warm, cap refill <3 seconds to all toes- no calf pain with manual compression NEUROLOGICAL: sensation intact with light touch to toes MUSCULOSKELETAL: Movement of toes intact , muscle strength 5/5 and equal bilaterally. Left dressing to LLE intact. No leak noted. Good seal. 25cc serosang drainage noted to vac container. - Lab Result Diagrams: 11/21/18 06:53 11/21/18 06:53 Labs: Abnormal lab results RBC 3.42 M/mcL (3.82-4.97) L 11/21/18 06:53 Hgb 9.2 g/dL (11.5-15.4) L 11/21/18 06:53 Hct 28.4 % (35.3-44.9) L 11/21/18 06:53 MCH 26.9 pg (28.0-33.3) L 11/21/18 06:53 ESR >= 130 mm/hr (0-15) H 11/17/18 14:45 Potassium 3.2 mEq/L (3.5-5.1) L 11/21/18 06:53 AST 11 Units/L (13-39) L 11/18/18 03:40 C-Reactive Protein 129 mg/L (Less than 10) H 11/17/18 14:45 Albumin 2.9 g/dL (3.5-5.7) L 11/18/18 03:40 Globulin 3.6 g/dL (2.4-3.5) H 11/18/18 03:40 Albumin/Globulin Ratio 0.8 (1.1-2.2) L 11/18/18 03:40 Vancomycin Trough 18 mcg/mL (5-10) H 11/20/18 16:42 Hep Bs Antibody 4.38 mIU/mL (10.00-) L 11/20/18 10:49 Hepatitis C Ab Screen Reactive (Nonreactive) H 11/21/18 06:53 Microbiology, Last 48 Hours 11/18/18 01:13 Anaerobic Culture - Preliminary Left Foot At this time, no anaerobic growth is present. The culture will be finalized after 5 days of incubation. 11/18/18 01:13 Wound Culture - Preliminary Left Foot Streptococcus gordonii Gram Negative Jeff Consult Discharge Plan - Plan Referrals: NONE,PCP [Primary Care Provider] -
[2018-11-21] MEDS: cefTRIAXone 2,000 MG in Water for inj. (sterile) 20 ML 20 ML IVP SCH (15:05)
[2018-11-21] MEDS: hydrOXYzine pamoate 25 MG CAPSULE PO PRN (15:05)
[2018-11-21] MEDS: OXYCODONE Oral CONC 10 MG/0.5 ML ORAL.SYG SL PRN ×2 (15:06→22:19)
[2018-11-21] MEDS: *HR* Heparin 5,000 UNIT/ML VIAL SQ SCH ×2 (19:34→19:41)
[2018-11-22] MEDS: hydrOXYzine pamoate 25 MG CAPSULE PO PRN ×2 (01:12→11:22)
[2018-11-22] MEDS: Ketorolac 15 MG/ML VIAL IVP PRN ×2 (01:42→08:21)
[2018-11-22] MEDS: *HR* Heparin 5,000 UNIT/ML VIAL SQ SCH ×2 (06:14→17:07)
[2018-11-22] MEDS: OXYCODONE Oral CONC 10 MG/0.5 ML ORAL.SYG SL PRN ×2 (06:15→11:22)
[2018-11-22] MEDS: Sennosides/Docusate Sodium TABLET PO SCH ×2 (08:20→21:05)
[2018-11-22] MEDS: metroNIDAZOLE 500 MG TABLET PO SCH ×3 (08:20→21:05)
[2018-11-22 08:53] LABS: Basophils % 0.5 %; Eosinophils # 0.4 K/mcL (0.0-0.6); Eosinophils % 4.2 %; Hematocrit 28.8 % (35.3-44.9); Hemoglobin 9.2 g/dL (11.5-15.4); Immature Granulocytes % 0.7 % (0-4); Lymphocytes # 3.3 K/mcL (0.6-4.6); Lymphocytes % 37.9 %; Mean Corpuscular HGB Conc 31.9 g/dL (31.6-35.5); Mean Corpuscular Hemoglobin 26.3 pg (28.0-33.3); Mean Corpuscular Volume 82.3 fL (83.0-100.0); Mean Platelet Volume 9.7 fL (9.4-12.4); Monocytes # 0.9 K/mcL (0.0-1.3); Monocytes % 9.9 %; Platelet Count 327 K/mcL (140-400); Red Cell Distribution Width 13.5 % (11.5-14.5); Segmented Neutrophils % 46.8 %
--- NOTE | 2018-11-22 10:01 | Infectious Disease Progress No ---
ID Progress Note Date of Encounter: 11/22/18 Time of Encounter: 09:59 - Subjective Subjective: Patient seen and examined. No acute events overnight. Patient complains of pressure-like pain in the left foot and ankle, improved this morning. Denies fevers, chills, rigors. Denies chest pain, shortness of breath, or cough. Reports some nausea this morning after eating a ham sandwich, but she was able to eat some breakfast this morning and her nausea is resolved. Denies diarrhea or constipation. Last bowel movement was yesterday. Denies abdominal pain or urinary complaints. States vaginal itching and discharge are resolved. Denies oral thrush or any skin lesions. - Objective CBC & Chem 7: 11/22/18 04:00 11/21/18 06:53 - Line Documentation Line Documentation: PICC Line (Left upper extremity with transparent dressing clean, dry, and intact.) - Exam Vitals: Temp Pulse Resp BP Pulse Ox 99.1 F 66 15 105/66 98 11/22/18 06:11 11/22/18 06:11 11/22/18 06:11 11/22/18 06:11 11/22/18 06:11 Exam: Head: Atraumatic, normal inspection, normocephalic. Eye: EOMI, PERRLA, no scleral icterus noted. ENT: Mucous membranes moist. No odontogenic infection noted. Neck: Normal inspection, no meningismus. Respiratory: Clear to auscultation. No rales, respiratory distress, rhonchi, or wheezes noted. Cardiovascular: Regular rate and rhythm, S1 and S2 audible. No murmurs, rubs, or gallops. GI: Soft, nondistended, normal bowel sounds. Extremities: Left lower extremity dressing clean, dry, and intact. Wound VAC noted with small amount of serous sanguinous drainage noted in the canister. Positive motor and sensation to the distal extremity. Multiple scabbed lesions in various stages of healing noted to the bilateral lower extremities. No erythema or fluctuance noted surrounding the site. Neurological: Alert, oriented 3, no focal deficits. Psychiatric: normal affect, normal mood. Skin: Dry, intact, warm. Normal color. No rashes. - Assessment and Plan (1) Sepsis Current Visit: Yes Status: Acute She had 2 sepsis criteria on admission. Likely secondary to left foot abscess and cellulitis. Improved. Leukocytosis and tachycardia have resolved. She has remained afebrile. Blood cultures drawn 11/17/18 are no growth to date 2 sets. Qualifiers: Sepsis type: sepsis due to unspecified organism Qualified Code(s): A41.9 - Sepsis, unspecified organism SNOMED Code(s): 29227967 (2) Abscess of tendon sheath, left ankle and foot Current Visit: Yes Status: Acute Causative organism: Enterobacter cloacae and Strep species. Etiology: IV drug use injection site. X-ray of the left ankle showed extensive soft tissue irregularity and ulceration, but no osteomyelitis. CT of the left lower extremity showed a large abscess. Preop ESR greater than 130, CRP 129. Podiatry consulted. Status post I&D of multiple areas of the left foot, and I&D of the left ankle/leg or by Dr. Stack. Operative note reviewed. Intraoperative cultures are positive for S. gordonnii and E. cloacae. Culture of the Wound Is Positive for Enterobacter cloacae. Currently on Rocephin and flagyl. SNOMED Code(s): 276891862 (3) Cellulitis of left foot Current Visit: Yes Status: Acute Location: Left foot. Etiology: Likely secondary to IV drug use injection site infection. CT of the lower extremity showed findings consistent with cellulitis. Currently on Rocephin and flagyl. SNOMED Code(s): 784669039 (4) IVDU (intravenous drug user) Current Visit: Yes Status: Acute Reports injecting Suboxone IV that she gets off the street. Last use about 4 weeks ago. Hep C positive. Hep B non-immune. HIV nonreactive. SNOMED Code(s): 786672000 (5) Hepatitis C Current Visit: Yes Status: Acute Qualifiers: Viral hepatitis chronicity: chronic Hepatic coma status: without hepatic coma Qualified Code(s): B18.2 - Chronic viral hepatitis C SNOMED Code(s): 65020167 - Recommendations Recommendations: Await blood cultures to finalize. Await intraoperative cultures to finalize. Wound care and activity restrictions per the podiatry team. Continue Rocephin 2 grams IV daily. Continue flagyl 500mg PO TID. Duration treatment depends on the clinical picture, likely 4-6 weeks given the extent of the infection. Continue flagyl until anaerobic cultures finalize. If negative, can discontinue, otherwise leave on until follow up with ID. Monitor renal function for drug toxicity and dose adjust antibiotics. security services manager to assist with discharge planning. Will need weekly CBC, BUN/Cr, ESR, and CRP. Will need weekly PICC care per protocol. Follow up with ID 12/07/18 at 1345. Consult Discharge Plan - Plan Referrals: NONE,PCP [Primary Care Provider] - Amnada Hughes, VARNISHING MACHINE OPERATOR [Advanced Practice Nurse] - 12/07/18 1:45 pm Prescriptions: cefTRIAXone [Rocephin] 2,000 mg IVPB DAILY #42 vial
[2018-11-22 10:11] LABS: BUN/Creatinine Ratio 15 (6-26); Blood Urea Nitrogen 11 mg/dL (6-20); C-Reactive Protein 31 mg/L (Less than 10); Calcium 8.9 mg/dL (8.6-10.3); Carbon Dioxide 21 mEq/L (23-29); Chloride 108 mEq/L (98-107); Glucose 88 mg/dL (70-105); Magnesium 1.9 mg/dL (1.6-2.6); Osmolality,Calculated 287 (280-300); Phosphorous 3.3 mg/dL (2.7-4.5); Potassium 3.9 mEq/L (3.5-5.1); Sodium 139 mEq/L (136-145); eGFR For Non-African Americans > 60 (> 60)
--- NOTE | 2018-11-22 10:53 | Podiatry Progress Note ---
Date of Encounter: 11/22/18 Time of Encounter: 10:00 - Assessment and Plan (1) Abscess of tendon sheath, left ankle and foot Current Visit: Yes Status: Acute s/p I&D of the left foot and ankle per 11/17 wound cultures showing enterobacter cloacae complex , surgical cultures pending and showing staphlococcus gordonii and enterobacter complex Patient with wound vac intact and running without issue at this time. 50cc serosang drainage to canister PLAN: wound vac removed at bedside, soaked sponge with saline prior to removal- flushed with saline Appears to be healing well, will continue to monitor darkening margins of medial aspect of wound Repeat wound cultures obtained from entire surface of surgical wound- orders placed and provided cultures to nurse. Will replace wound vac to promote wound healing and allow for formation of hea lthy granulation tissue Placed white sponge to exposed tendon areas x2, medium black sponge placed o vertop ( must be cut in half lenthwise to decrease thickness of sponge) and tracked to anterior aspect of ankle Tegaderm draping placed to ankle to protect skin Vac sealed with 150mmHg suction, good seal without leak Patient reports pain throughout procedure-patient was premedicated No drainage noted at this time Wound vac will need changed every MWF- Sw on board for discharge planning and pending ECF placement Will need to follow in wound care center with 1 week after discharge. Continue to monitor, call with any issues or concerns, fevers, chills, n/v or fls. - WBC 8.6 and patient is afebrile Patient denies any cp or sob. ID on board and following for management of IV antibiotics for cellulitis and abscess formation - patient continues on rocephin and flagyl started on 11/20 Wound vac to remain intact , call with any issues or concerns. Post operative shoe to be placed prior to discharge (2) Cellulitis of left foot Current Visit: Yes Status: Acute ID on board and following for antibiotic management Subjective Interval history: Patient s.p I&D of left foot and ankle on multiple planes- abscess formation with concern of narcotizing fasciitis. Patient resting on arrival. Spoke with nurse prior to exam to have patient premedicated with pain medication prior to wound vac change. Patient with known hx of IVDA, reports using for 10 years. Patient wound vac intact and running on arrival and without leak. Per SW patient pending placement to LTCF for IV antibiotics- Patient denies any known fevers, chills, n/v or fls. Objective - Vital Signs Vital Signs: Vital Signs Temp Pulse Resp BP Pulse Ox 11/22/18 09:56 98.5 F 74 14 99/61 97 11/22/18 06:11 99.1 F 66 15 105/66 98 11/22/18 03:50 98.4 F 57 15 117/72 98 11/21/18 19:08 98.4 F 71 15 110/70 97 11/21/18 14:09 98.5 F 65 17 113/70 97 Intake and Output 11/21/18 11/22/18 11/22/18 23:59 07:59 15:59 Intake Total 0 / 0 0 / 0 240 / 240 Output Total 0 / 0 300 / 300 0 / 0 Balance 0 / 0 -300 / -300 240 / 240 Intake: Oral 0 / 0 0 / 0 240 / 240 Output: Urine 0 / 0 300 / 300 0 / 0 Other: Meal Breakfast Percent of Meal Consumed 5% Weight 72.5 kg Patient Weight 11/22/18 23:59 Weight 72.5 kg - Exam Exam: Podiatry General Exam: General appearance: alert awake oriented X 3. Calm at times and pleasant, no acu te distress.. Vascular: Pedal pulses +2/4 DP/PT , No evidence of cyanosis, pallor or rubor, Edema graded at 1+/4, Skin Temperature warm, No calf pain with manual compression. capillary refill time is immediate to digits. Neurologic: Sensation intact with light touch to foot. . Postop Exam: S/p I&D of left foot Retention sutures noted with open surgical wound with exposure of wound bed and exposure of the tendon along the anterior and medial aspect of the left malleolus , no active drainage, no odor,mild erythema, no streaking. Minimal edema. Wound bed extends from the dorsal/anterior aspect of the foot and ankle medially along the medial malleolus. There are retention sutures proximal to the wound as well to the posterior aspect of the foot. There is slight darkening of the skin at the medial margins of the wound, will continue to monitor for possible necrosis of tissue. Darkening margins extend 2cmx0.2cm in width along the medial margin. No sloughing of tissue. Wound bed 100% healthy granulation tissue and appears to be healing well. - Lab Result Diagrams: 11/22/18 04:00 11/22/18 08:35 Labs: Abnormal lab results RBC 3.50 M/mcL (3.82-4.97) L 11/22/18 04:00 Hgb 9.2 g/dL (11.5-15.4) L 11/22/18 04:00 Hct 28.8 % (35.3-44.9) L 11/22/18 04:00 MCV 82.3 fL (83.0-100.0) L 11/22/18 04:00 MCH 26.3 pg (28.0-33.3) L 11/22/18 04:00 ESR 90 mm/hr (0-15) H 11/22/18 04:00 Chloride 108 mEq/L (98-107) H 11/22/18 08:35 Carbon Dioxide 21 mEq/L (23-29) L 11/22/18 08:35 AST 11 Units/L (13-39) L 11/18/18 03:40 C-Reactive Protein 31 mg/L (Less than 10) H 11/22/18 08:35 Albumin 2.9 g/dL (3.5-5.7) L 11/18/18 03:40 Globulin 3.6 g/dL (2.4-3.5) H 11/18/18 03:40 Albumin/Globulin Ratio 0.8 (1.1-2.2) L 11/18/18 03:40 Vancomycin Trough 18 mcg/mL (5-10) H 11/20/18 16:42 Hep Bs Antibody 4.38 mIU/mL (10.00-) L 11/20/18 10:49 Hepatitis C Ab Screen Reactive (Nonreactive) H 11/21/18 06:53 Microbiology, Last 48 Hours 11/18/18 01:13 Wound Culture - Final Left Foot Streptococcus gordonii Enterobacter cloacae complex 11/18/18 01:13 Anaerobic Culture - Preliminary Left Foot At this time, no anaerobic growth is present. The culture will be finalized after 5 days of incubation. Consult Discharge Plan - Plan Referrals: Amanda Hughes SUPERVISOR WRAPPING ROOM [Advanced Practice Nurse] - 12/07/18 1:45 pm NONE,PCP [Primary Care Provider] - Prescriptions: cefTRIAXone [Rocephin] 2,000 mg IVPB DAILY #42 vial
--- NOTE | 2018-11-22 14:10 | Internal Med Progress Note ---
Hospitalist Progress Note - Encounter Date of Encounter: 11/22/18 Time of Encounter: 14:08 - Subjective Interval History: Patient seen and examined earlier today. Reports of pain being better controlled with Toradol but not with oxycodone. Denies any abd pain/n/v, fever, or chills. Ten point ROS is negative except listed above Abx as per ID, pt will need 6 weeks of IV abx, case management/social service coordinator aware, d/c planning initiated No overnight events reported - Exam Vitals: Temp Pulse Resp BP Pulse Ox 98.5 F 74 14 99/61 97 11/22/18 09:56 11/22/18 09:56 11/22/18 09:56 11/22/18 09:56 11/22/18 09:56 Exam: General: No acute distress, AAO x 3 HEENT: EOMI, PERRLA, NC/AT, no scleral icterus Respiratory: Clear to auscultate bilaterally, no wheezing, no rales Cardiovascular: Regular, Rate, Rhythm, No murmurs GI: Soft, Non tender, non distended, normal bowel sounds Ext: distal LLE dressing intact, diffuse skin excoriations on distal lower extremities bilaterally, no tenderness, positive pulses Neuro: AAO x 3, no focal deficits Rest of the clinical exam is non contributory - Assessment and Plan (1) IVDU (intravenous drug user) Current Visit: Yes Status: Acute Assessment and Plan: Continue broad spectrum IV abx ID evaluation appreciated 2D echo report reviewed, no vegetations reported, will closely monitor, if pt is noted to have positive blood cultures, will consider PATT continue wound care as per podiatry (2) Abscess of tendon sheath, left ankle and foot Current Visit: Yes Status: Acute Assessment and Plan: Podiatry on board and evaluation appreciated s/p I& D on 11/17/18 continue broad spectrum IV abx as per ID wound care management as per podiatry Blood cultures remain negative thus far wound cultures reporting enterobacter Cloacae complex pain control as needed will continue IV abx management as per ID (3) DVT prophylaxis Current Visit: Yes Status: Acute Assessment and Plan: Heparin SQ (4) Constipation Current Visit: Yes Status: Resolved Assessment and Plan: laxative support (5) Hypokalemia Current Visit: Yes Status: Resolved Assessment and Plan: continue to monitor electrolytes and replace as needed - Time Spent with Patient Total time spent is greater than 50% in coordination of care (as documented) at patient's floor/unit and/or counseling patient: 25 - 35 minutes Plan of Care Discussed with: patient (patient/RN/case management/pharmacist) Internal Medicine: Result - Labs CBC & Chem 7: 11/22/18 04:00 11/22/18 08:35 Labs: Short CBC 11/22/18 Range/Units 04:00 WBC 8.6 (4.3-11.1) K/mcL Hgb 9.2 L (11.5-15.4) g/dL Hct 28.8 L (35.3-44.9) % Plt Count 327 (140-400) K/mcL Neutrophils # 4.0 (1.6-8.9) K/mcL BMP 11/22/18 08:35 Sodium 139 Potassium 3.9 Chloride 108 H Carbon Dioxide 21 L BUN 11 Creatinine 0.72 Glucose 88 Calcium 8.9 Consult Discharge Plan - Plan Referrals: Amanda Hughes, BASKET PERSON [Advanced Practice Nurse] - 12/07/18 1:45 pm NONE,PCP [Primary Care Provider] - Prescriptions: cefTRIAXone [Rocephin] 2,000 mg IVPB DAILY #42 vial (4) Constipation Qualifiers: Constipation type: drug induced constipation Qualified Code(s): K59.03 - Drug induced constipation
[2018-11-22] MEDS: Ketorolac 30 MG/ML VIAL IVP PRN ×2 (14:11→21:05)
[2018-11-22] MEDS: cefTRIAXone 2,000 MG in Water for inj. (sterile) 20 ML 20 ML IVP SCH (16:49)
[2018-11-23] MEDS ORDERED: traMADol 50 MG TABLET PO ONE (01:10)
[2018-11-23] MEDS: Ketorolac 30 MG/ML VIAL IVP PRN ×2 (03:13→09:13)
[2018-11-23 03:32] LABS: Basophils % 0.4 %; Eosinophils # 0.3 K/mcL (0.0-0.6); Eosinophils % 3.1 %; Hematocrit 28.1 % (35.3-44.9); Immature Granulocytes % 0.4 % (0-4); Lymphocytes # 2.2 K/mcL (0.6-4.6); Lymphocytes % 27.3 %; Mean Corpuscular Hemoglobin 26.9 pg (28.0-33.3); Mean Corpuscular Volume 83.9 fL (83.0-100.0); Mean Platelet Volume 9.2 fL (9.4-12.4); Monocytes # 0.6 K/mcL (0.0-1.3); Monocytes % 7.4 %; Neutrophils # 4.9 K/mcL (1.6-8.9); Platelet Count 347 K/mcL (140-400); Red Blood Count 3.35 M/mcL (3.82-4.97); Red Cell Distribution Width 13.6 % (11.5-14.5); Segmented Neutrophils % 61.4 %
[2018-11-23 03:52] LABS: BUN/Creatinine Ratio 20 (6-26); Blood Urea Nitrogen 13 mg/dL (6-20); Calcium 9.1 mg/dL (8.6-10.3); Carbon Dioxide 25 mEq/L (23-29); Chloride 106 mEq/L (98-107); Glucose 95 mg/dL (70-105); Magnesium 1.8 mg/dL (1.6-2.6); Osmolality,Calculated 288 (280-300); Phosphorous 3.6 mg/dL (2.7-4.5); Potassium 3.7 mEq/L (3.5-5.1); Sodium 139 mEq/L (136-145); eGFR For Non-African Americans > 60 (> 60)
[2018-11-23] MEDS: *HR* Heparin 5,000 UNIT/ML VIAL SQ SCH (06:23)
[2018-11-23] MEDS: Sennosides/Docusate Sodium TABLET PO SCH (09:14)
[2018-11-23] MEDS: hydrOXYzine pamoate 25 MG CAPSULE PO PRN (09:14)
[2018-11-23] MEDS: metroNIDAZOLE 500 MG TABLET PO SCH ×2 (09:14→15:34)
--- NOTE | 2018-11-23 09:54 | Physician Discharge Referral ---
ExtendedCare Referral Info Transfer To: SNF Provider in Charge after Transfer: PCP Institutional Level of Care: Skilled - Diagnosis (1) IVDU (intravenous drug user) Priority: Secondary Status: Acute (2) Abscess of tendon sheath, left ankle and foot Priority: Primary Status: Acute (3) DVT prophylaxis Priority: Secondary Status: Acute (4) Constipation Priority: Secondary Status: Resolved (5) Hypokalemia Priority: Secondary Status: Resolved - Transfer Medications Prescriptions: Ketorolac [Toradol] 10 mg PO Q6HR PRN #20 tablet PRN Reason: moderate to severe pain cefTRIAXone [Rocephin] 2,000 mg IVPB DAILY #42 vial Home Medications: cefTRIAXone [Rocephin] 2,000 mg IVPB DAILY #42 vial 11/22/18 [Rx] Acetaminophen [Tylenol] 650 mg PO Q6HR PRN tablet 11/23/18 [Rx] Ketorolac [Toradol] 10 mg PO Q6HR PRN #20 tablet 11/23/18 [Rx] Polyethylene Glycol 3350 [MiraLAX] 17 gm PO DAILY powd.pack 11/23/18 [Rx] Sennosides/Docusate Sodium [Senna Plus] 2 each PO BID tablet 11/23/18 [Rx] hydrOXYzine pamoate [HydrOXYzine Pamoate] 25 mg PO TID PRN capsule 11/23/18 [Rx] Allergies/Adverse Reactions: Allergy/AdvReac Type Severity Reaction Status Date / Time No Known Allergies Allergy Verified 11/17/18 19:02 - Respiratory Orders Smoking Cessation: Smoking cessation has been advised. For more information, call the [place] Tobacco Quit Line at 3-894-YVQL-NOW. CERTIFICATION: I certify that the transfer of the above named patient to an Extended Care Facility is necessary for the continuing treatment of the diagnosis listed. The above information is true and accurate reflection of patient's current condition. Confidential - Redisclosure prohibited without a patient's written consent.
--- NOTE | 2018-11-23 09:57 | Discharge Summary ---
- NOTES TO OUTPATIENT PROVIDER Notes to Outpatient Provider: Patient was admitted for left ankle and foot abscess secondary to IVDA. She is s/p surgical I&D by podiatry and will need IV abx for which she is being discharged to SNF. Orders not resulted at time of discharge: Pending orders 11/18/18 01:11 AFB Culture, Tissue [TB] Routine AFB Smear [TB] Routine 11/18/18 01:13 Fungal Culture [MYC] Routine 11/21/18 11:21 HIV Qualitative PCR(Detection) Routine 11/22/18 10:50 Culture,Anaerobic [RM] Routine Culture,Wound [RM] Routine Date of Encounter: 11/23/18 Time of Encounter: 09:55 - Discharge Diagnosis (1) IVDU (intravenous drug user) Priority: Secondary Status: Acute (2) Abscess of tendon sheath, left ankle and foot Priority: Primary Status: Acute (3) DVT prophylaxis Priority: Secondary Status: Acute (4) Constipation Priority: Secondary Status: Resolved Qualifiers: Constipation type: drug induced constipation Qualified Code(s): K59.03 - Drug induced constipation (5) Hypokalemia Priority: Secondary Status: Resolved Hospital course: Ms. Rowell is a 37 year old female with hx of IVDA with recurrent skin infections who was admitted for abscess of left ankle and foot. Pt was seen by podiatry and underwent surgical I&D and was started on IV abx. Pt was evaluated by ID and recommendation was to continue IV abx for 4-6 weeks. Abx therapy was altered as per wound culture results. Pt's wound care is being managed by podiatry and wound vac is arranged at the SNF. Pt is seen and examined today. She is medically stable for discharge to SNF. Extensive drug abuse counseling has been provided and she is willing to comply. Pt is to follow up with ID and Podiatry after discharge. Pt will need SNF for IV abx given hx of IVDA. Discharge discussed with: patient, nurse, social work, case management - Time Spent with Patient Total time spent providing and/or coordinating discharge services: 35 minutes Time spent: Less than 30 minutes, Greater than 30 minutes - Discharge Medications Prescriptions: Sorin cefTRIAXone [Rocephin] 2,000 mg IVPB DAILY #42 vial Acetaminophen [Tylenol] 650 mg PO Q6HR PRN tablet PRN Reason: Mild Pain/Fever Ketorolac [Toradol] 10 mg PO Q6HR PRN #20 tablet PRN Reason: moderate to severe pain hydrOXYzine pamoate [HydrOXYzine Pamoate] 25 mg PO TID PRN capsule PRN Reason: Anxiety Polyethylene Glycol 3350 [MiraLAX] 17 gm PO DAILY powd.pack Sennosides/Docusate Sodium [Senna Plus] 2 each PO BID tablet Home Medications: cefTRIAXone [Rocephin] 2,000 mg IVPB DAILY #42 vial 11/22/18 [Rx] Acetaminophen [Tylenol] 650 mg PO Q6HR PRN tablet 11/23/18 [Rx] Ketorolac [Toradol] 10 mg PO Q6HR PRN #20 tablet 11/23/18 [Rx] Polyethylene Glycol 3350 [MiraLAX] 17 gm PO DAILY powd.pack 11/23/18 [Rx] Sennosides/Docusate Sodium [Senna Plus] 2 each PO BID tablet 11/23/18 [Rx] hydrOXYzine pamoate [HydrOXYzine Pamoate] 25 mg PO TID PRN capsule 11/23/18 [Rx] Allergies/Adverse Reactions: Allergy/AdvReac Type Severity Reaction Status Date / Time No Known Allergies Allergy Verified 11/17/18 19:02 Date of admission: 11/18/18 03:32 Primary care physician: PCP NONE Consults: 11/17/18 12:16 Consult to Invasive Line Access Team [CONS] Stat Reason for Consult: limited vascular access, need for manager market development IV ATBX Line Type: PICC PICC line indications: Limited vascular access 11/17/18 14:59 Consult to Invasive Line Access Team [CONS] Routine Reason for Consult: limited vascular access-critically ill with need for venous access. ED staff unable to obtain IV access or labs. Line Type: EPIV 11/17/18 20:03 Consult to Podiatry [CONS] Stat Consulting Provider: Pod[facility] Reason for Consult: left foot abscess Time Notified: 18:00 Call Completed: Yes 11/18/18 02:59 Consult to Physician [CONS] Routine Consulting Provider: Arpit Branham Reason for Consult: necrotic foot infection Call Completed: Yes 11/18/18 03:01 Consult to Mat Machine Tender [CONS] Routine Reason for SW Consult: will need ECF referral for manager market development IV antibiotics 11/18/18 12:01 Consult to Infectious Diseases [CONS] Routine Consulting Provider: Infectious Disease [facility] Reason for Consult: skin abscess/wound secondary to IVDA Call Completed: No 11/22/18 14:46 Consult to Invasive Line Access Team [CONS] Routine Reason for Consult: home atb Line Type: Midline Discharging clinician: Kavita Stroud Anticipated date of discharge: 11/23/18 - Constitutional Vitals: Temp Pulse Resp BP Pulse Ox 98.1 F 56 15 129/74 99 11/23/18 06:23 11/23/18 06:23 11/23/18 06:23 11/23/18 06:23 11/23/18 06:23 General appearance: Present: A&O X 3, answers questions appropriately Exam: General: No acute distress, AAO x 3 HEENT: EOMI, PERRLA, NC/AT, no scleral icterus Respiratory: Clear to auscultate bilaterally, no wheezing, no rales Cardiovascular: Regular, Rate, Rhythm, No murmurs GI: Soft, Non tender, non distended, normal bowel sounds Ext: distal LLE dressing intact, diffuse skin excoriations on distal lower extremities bilaterally, no tenderness, positive pulses Neuro: AAO x 3, no focal deficits Rest of the clinical exam is non contributory - Patient Status Disposition: Transfer SNF Condition: Good - Discharge Instructions Follow Up With: Aamnda Hughse BUSINESS INFO CONSULTANT [Advanced Practice Nurse] - 12/07/18 1:45 pm NONE,PCP [Primary Care Provider] - Additional Instructions: Please follow up with your primary care physician, Infectious disease, and Podiatry within one week after your discharge from the hospital Please continue wound care as per podiatry - Diet and Activity Activity: as per physical therapy Diet: advance to your usual diet
--- NOTE | 2018-11-23 10:59 | Infectious Disease Progress No ---
ID Progress Note Date of Encounter: 11/23/18 Time of Encounter: 10:57 - Subjective Subjective: Patient seen and examined. No acute events overnight. Patient reports pain in the left foot is improved. Denies fevers, chills, rigors. Denies chest pain, shortness of breath, or cough. Reports some nausea this morning and states she thinks it is from withdrawal symptoms from not getting Suboxone while here in the hospital. Denies diarrhea or constipation. Last bowel movement was yesterday. Denies abdominal pain or urinary complaints. States vaginal itching and discharge are resolved. Denies oral thrush or any skin lesions. - Objective CBC & Chem 7: 11/23/18 03:05 11/23/18 03:05 - Line Documentation Line Documentation: Midline (Right upper extremity with transparent dressing clean, dry, and intact.) - Exam Vitals: Temp Pulse Resp BP Pulse Ox 98.4 F 49 15 122/72 97 11/23/18 10:44 11/23/18 10:44 11/23/18 10:44 11/23/18 10:44 11/23/18 10:44 Exam: Head: Atraumatic, normal inspection, normocephalic. Eye: EOMI, PERRLA, no scleral icterus noted. ENT: Mucous membranes moist. No odontogenic infection noted. Neck: Normal inspection, no meningismus. Respiratory: Clear to auscultation. No rales, respiratory distress, rhonchi, or wheezes noted. Cardiovascular: Regular rate and rhythm, S1 and S2 audible. No murmurs, rubs, or gallops. GI: Soft, nondistended, normal bowel sounds. Extremities: Left lower extremity dressing clean, dry, and intact. Wound VAC noted with small amount of serous sanguinous drainage noted in the canister. Positive motor and sensation to the distal extremity. Multiple scabbed lesions in various stages of healing noted to the bilateral lower extremities. No erythema or fluctuance noted surrounding the site. Neurological: Alert, oriented 3, no focal deficits. Psychiatric: normal affect, normal mood. Skin: Dry, intact, warm. Normal color. No rashes. - Assessment and Plan (1) Sepsis Current Visit: Yes Status: Acute She had 2 sepsis criteria on admission. Likely secondary to left foot abscess and cellulitis. Improved. Leukocytosis and tachycardia have resolved. She has remained afebrile. Blood cultures drawn 11/17/18 are negative 2 sets. Qualifiers: Sepsis type: sepsis due to unspecified organism Qualified Code(s): A41.9 - Sepsis, unspecified organism SNOMED Code(s): 71016470 (2) Abscess of tendon sheath, left ankle and foot Current Visit: Yes Status: Acute Causative organism: Enterobacter cloacae and Strep species. Etiology: IV drug use injection site. X-ray of the left ankle showed extensive soft tissue irregularity and ulceration, but no osteomyelitis. CT of the left lower extremity showed a large abscess. Preop ESR greater than 130, CRP 129. Podiatry consult. Status post I&D of multiple areas of the left foot, and I&D of the left ankle/leg or by Dr. Stack. Operative note reviewed. Intraoperative cultures are positive for S. gordonnii and Enterobacter cloacae. Culture of the Wound Is Positive for Enterobacter cloacae. Currently on Rocephin and flagyl. SNOMED Code(s): 338127133 (3) Cellulitis of left foot Current Visit: Yes Status: Acute Location: Left foot. Etiology: Likely secondary to IV drug use injection site infection. CT of the lower extremity showed findings consistent with cellulitis. Currently on Rocephin and flagyl. SNOMED Code(s): 479811768 (4) IVDU (intravenous drug user) Current Visit: Yes Status: Acute Reports injecting Suboxone IV that she gets off the street. Last use about 4 weeks ago. Hep C positive. Hep B non-immune. HIV nonreactive. SNOMED Code(s): 148704691 (5) Hepatitis C Current Visit: Yes Status: Acute Qualifiers: Viral hepatitis chronicity: chronic Hepatic coma status: without hepatic coma Qualified Code(s): B18.2 - Chronic viral hepatitis C SNOMED Code(s): 13811313 - Recommendations Recommendations: Await intraoperative cultures to finalize (anaerobic cultures). Wound care and activity restrictions per the podiatry team. Continue Rocephin 2 grams IV daily. Continue flagyl 500mg PO TID. Duration treatment depends on the clinical picture, likely 4-6 weeks given the extent of the infection. Continue flagyl until anaerobic cultures finalize. If negative, can discontinue, otherwise leave on until follow up with ID. Monitor renal function for drug toxicity and dose adjust antibiotics. food services coordinator to assist with discharge planning. Will need weekly CBC, BUN/Cr, ESR, and CRP. Will need weekly midline care per protocol. Follow up with ID 12/07/18 at 1345. Consult Discharge Plan - Plan Instructions: Cellulitis (DC) Additional Instructions: Please follow up with your primary care physician, Infectious disease, and Podiatry within one week after your discharge from the hospital Please continue wound care as per podiatry Referrals: Arpit Branham DPM [Partnered Physician] - 11/30/18 10:00 am (Will be seen in the [facility]. [phone]) Amanda Hughse COMMERCIAL COLLECTIONS DRIVER [Advanced Practice Nurse] - 12/07/18 1:45 pm Prescriptions: Ketorolac [Toradol] 10 mg PO Q6HR PRN #20 tablet PRN Reason: moderate to severe pain cefTRIAXone [Rocephin] 2,000 mg IVPB DAILY #42 vial - Attending Attestation I have personally performed a face to face evaluation on this patient. I have reviewed and agree with the care plan. History and Exam by me shows: Assessment and Plan: 1. Sepsis 2. Abscess of tendon sheath left ankle, foot with E cloacae and strep sp s/p I&D 3. IVDU Recommendations: continue rocephin and flagyl for now duration of treatment depends on clinical picture
--- NOTE | 2018-11-23 11:12 | Podiatry Progress Note ---
Date of Encounter: 11/23/18 Time of Encounter: 10:00 - Assessment and Plan (1) Abscess of tendon sheath, left ankle and foot Current Visit: Yes Status: Acute s/p I&D of the left foot and ankle per 11/17 wound cultures showing enterobacter cloacae complex , surgical cultures pending and showing staphlococcus gordonii and enterobacter complex Patient with wound vac intact and running without issue at this time. 50cc serosang drainage to canister PLAN: Patient resting comfortably Wound vac left intact at this time Wound vac will need changed every MWF- orders in place Sw on board for discharge planning and pending ECF placement Will need to follow in wound care center with 1 week after discharge. Continue to monitor, call with any issues or concerns, fevers, chills, n/v or fls. - WBC 8.6 and patient is afebrile Patient denies any cp or sob. ID on board and following for management of IV antibiotics for cellulitis and abscess formation - patient continues on rocephin and flagyl started on 11/20 Post operative shoe to be placed prior to discharge (2) Cellulitis of left foot Current Visit: Yes Status: Acute ID on board and following for antibiotic management Subjective Interval history: Patient s.p I&D of left foot and ankle on multiple planes- abscess formation with concern of narcotizing fasciitis. Patient resting on arrival. Patient wound vac intact and running on arrival and without leak. Per SW patient pending placement to LTCF for IV antibiotics- Patient denies any known fevers, chills, n/v or fls. Objective - Vital Signs Vital Signs: Vital Signs Temp Pulse Resp BP Pulse Ox 11/23/18 10:44 98.4 F 49 15 122/72 97 11/23/18 08:30 97 11/23/18 06:23 98.1 F 56 15 129/74 99 11/23/18 05:02 98.4 F 61 15 121/77 96 11/22/18 23:17 99.1 F 72 15 134/87 96 11/22/18 19:12 98.8 F 62 16 131/70 96 11/22/18 14:23 98.4 F 59 14 108/65 97 Intake and Output 11/22/18 11/23/18 11/23/18 23:59 07:59 15:59 Intake Total 0 / 0 0 / 0 Output Total 310 / 310 300 / 300 10 10 Balance -310 / -310 -300 / -300 -10 / -10 Intake: Oral 0 / 0 0 / 0 Output: Urine 300 / 300 300 / 300 0 / 0 Wound Drainage Left Foot Other: Meal Dinner Weight 72.5 kg Patient Weight 11/23/18 23:59 Weight 72.5 kg - Exam Exam: wound vac intact and running without issue 5cc serosang drainage noted to wound vac canister VASCULAR: Toes warm, cap refill <3 seconds MUSCULOSKELETAL: Movement of toes , sensation intact Dressing left CDI at this time, limited assessment complete CONSTITUTIONAL: awake, alert and oriented. - Lab Result Diagrams: 11/23/18 03:05 11/23/18 03:05 Labs: Abnormal lab results RBC 3.35 M/mcL (3.82-4.97) L 11/23/18 03:05 Hgb 9.0 g/dL (11.5-15.4) L 11/23/18 03:05 Hct 28.1 % (35.3-44.9) L 11/23/18 03:05 MCH 26.9 pg (28.0-33.3) L 11/23/18 03:05 MPV 9.2 fL (9.4-12.4) L 11/23/18 03:05 ESR 90 mm/hr (0-15) H 11/22/18 04:00 AST 11 Units/L (13-39) L 11/18/18 03:40 C-Reactive Protein 31 mg/L (Less than 10) H 11/22/18 08:35 Albumin 2.9 g/dL (3.5-5.7) L 11/18/18 03:40 Globulin 3.6 g/dL (2.4-3.5) H 11/18/18 03:40 Albumin/Globulin Ratio 0.8 (1.1-2.2) L 11/18/18 03:40 Vancomycin Trough 18 mcg/mL (5-10) H 11/20/18 16:42 Hep Bs Antibody 4.38 mIU/mL (10.00-) L 11/20/18 10:49 Hepatitis C Ab Screen Reactive (Nonreactive) H 11/21/18 06:53 Microbiology, Last 48 Hours 11/18/18 01:13 Anaerobic Culture - Final Left Foot No anaerobes were recovered. 11/17/18 14:45 Blood Culture - Final Peripheral Venipuncture No growth. Final report. 11/17/18 14:45 Blood Culture - Final Peripheral Venipuncture No growth. Final report. 11/22/18 10:50 Gram Stain - Final Left Foot 11/22/18 10:50 Anaerobic Culture - Preliminary Left Foot Culture is incubating. 11/22/18 10:50 Wound Culture - Preliminary Left Foot Culture is incubating. 11/18/18 01:13 Wound Culture - Final Left Foot Streptococcus gordonii Enterobacter cloacae complex Consult Discharge Plan - Plan Additional Instructions: Please follow up with your primary care physician, Infectious disease, and Podiatry within one week after your discharge from the hospital Please continue wound care as per podiatry Referrals: Arpit Branham DPM [Partnered Physician] - 11/30/18 10:00 am (Will be seen in the [facility]. [phone]) Amanda Hughes [employer] [Advanced Practice Nurse] - 12/07/18 1:45 pm Prescriptions: cefTRIAXone [Rocephin] 2,000 mg IVPB DAILY #42 vial Ketorolac [Toradol] 10 mg PO Q6HR PRN #20 tablet PRN Reason: moderate to severe pain
[2018-11-23 14:45] VITALS: BP 118/77
== END 2018-11-23 17:27 | DRG 710 ==
LOC: 3ANU 12:06 → EMEROOARM 12:06 → 3ANU 21:43
PROVIDERS: ADMIT Pediatrics; ATTEND Internal Medicine